=== PATIENT | male | born 1980 | race Two or more races ===

== ENCOUNTER 2017-03-28 06:41 | Emergency (ER) | payer MEDICAID ==
[~2017-03-28] VITALS: Ht 162.6 cm; Wt 86.2 kg
[~2017-03-28 06:41] MED LIST: ARIP1SOL PO; CALC0.25 PO; CALC600T37 PO; CHOL20007 PO; CLON1TAB3 PO; FOLI1TAB6; LACO150T PO; LEVE500T22 PO; PALI1.5T PO; TOPI100T68 PO; TOPI200T37
[2017-03-28] MEDS ORDERED: SODIUM CHLORIDE 0.9% 500 ML IV ONE (06:49)
[2017-03-28 07:20] VITALS: BP 106/72
[2017-03-28 07:33] LABS: Anion Gap 6 (5-15); BUN/Creatinine Ratio 18.3; Blood Urea Nitrogen 24 mg/dL (7-18); Calcium 9.5 mg/dL (8.5-10.1); Carbon Dioxide 26 mmol/L (21-32); Chloride 113 mmol/L (98-107); GFR African American 80 mL/min; GFR Non-African American 66 mL/min; Glucose 82 mg/dL (74-106); Magnesium 2.2 mg/dL (1.6-2.6); Potassium 4.1 mmol/L (3.5-5.1); Sodium 145 mmol/L (136-145)
[2017-03-28 07:35] LABS: Acetaminophen < 2.0 ug/mL (10-30); Salicylate < 1.7 mg/dL (2.8-20.0)
[2017-03-28 07:36] LABS: Alkaline Phosphatase 130 U/L (45-117); Aspartate Aminotransferase 12 U/L (15-37); Bilirubin, Total 0.4 mg/dL (0.2-1.0); Total Protein 7.2 g/dL (6.4-8.2)
[2017-03-28 07:52] LABS: Basophils # (auto) 0 uL; Basophils % (auto) 0.5 % (0.0-2.0); Eosinophils # (auto) 0.3 uL; Eosinophils % (auto) 5.7 % (0.0-7.0); Hematocrit 36.1 % (41.0-53.0); Hemoglobin 12.5 g/dL (13.5-17.5); Lymphocytes # (auto) 1.3 uL; Lymphocytes % (auto) 21.7 % (10.0-50.0); Mean Corpuscular Hemoglobin 31.5 pg (28.0-32.0); Mean Corpuscular Hgb Conc. 34.5 g/dL (32.0-36.0); Mean Corpuscular Volume 91.4 fL (80.0-100.0); Mean Platelet Volume 6.9 fL (7.4-10.4); Monocytes # (auto) 0.5 uL; Monocytes % (auto) 7.6 % (0.0-12.0); Neutrophils # (auto) 3.9 uL; Neutrophils % (auto) 64.5 % (37.0-80.0); Nucleated Red Blood Cells % 0.1 %; Platelet Count (auto) 264 10^3/uL (140-450); Red Cell Distribution Width 13.6 % (11.6-16.0)
== END 2017-03-28 14:26 | disposition home or self-care (01) ==
LOC: EDBD 06:41 → ER 06:41
DX: F41.9 Anxiety disorder, unspecified (principal); F20.9 Schizophrenia, unspecified; R51 Headache; G40.909 Epilepsy, unspecified, not intractable, without status epilepticus; Z86.73 Personal history of transient ischemic attack (TIA), and cerebral infarction without residual deficits
CPT/HCPCS: 36415; 70450; 80053; 80320; 80329; 83735; 85025; 94761; 96360; 99285; J7030

== ENCOUNTER 2017-10-27 19:17 | Emergency (ER) | payer MEDICAID ==
[~2017-10-27] VITALS: Ht 165.1 cm; Wt 90.7 kg
[2017-10-27 20:16] LABS: Basophils # (auto) 0 uL; Basophils % (auto) 0.4 % (0.0-2.0); Eosinophils # (auto) 0.2 uL; Eosinophils % (auto) 3.2 % (0.0-7.0); Hematocrit 30.9 % (41.0-53.0); Hemoglobin 10.7 g/dL (13.5-17.5); Lymphocytes # (auto) 1.2 uL; Lymphocytes % (auto) 19.7 % (10.0-50.0); Mean Corpuscular Hemoglobin 30.8 pg (28.0-32.0); Mean Corpuscular Hgb Conc. 34.6 g/dL (32.0-36.0); Mean Corpuscular Volume 89.1 fL (80.0-100.0); Monocytes # (auto) 0.8 uL; Monocytes % (auto) 13.3 % (0.0-12.0); Neutrophils # (auto) 3.9 uL; Neutrophils % (auto) 63.4 % (37.0-80.0); Platelet Count (auto) 269 10^3/uL (140-450); Red Blood Cells 3.47 10^6/uL (4.5-5.90); Red Cell Distribution Width 13.5 % (11.8-14.3); White Blood Cell 6.1 10^3/uL (4.4-10.8)
[2017-10-27 20:25] LABS: Albumin 3.8 g/dL (3.4-5.0); BUN/Creatinine Ratio 11.8; Calcium 8.2 mg/dL (8.5-10.1); Potassium 3.7 mmol/L (3.5-5.1)
[2017-10-27 20:28] LABS: Bilirubin, Total 0.3 mg/dL (0.2-1.0); Total Protein 6.9 g/dL (6.4-8.2)
[2017-10-27 23:31] LABS: Urine Bacteria NONE SEEN /hpf (None Seen); Urine Blood Negative /uL (Negative); Urine Specific Gravity 1.008 (1.001-1.035); Urine WBC 1 /hpf (0 - 3)
[2017-10-28 00:10] VITALS: BP 128/74
[2017-11-01] MEDS ORDERED: NAP500T PO (08:14)
[2017-11-01] MEDS ORDERED: ESLI1TAB4 PO (08:14)
[2017-11-01] MEDS ORDERED: ASPI325T25 PO (08:14)
[2017-11-01] MEDS ORDERED: FOLI1TAB6 PO (08:14)
[2017-11-01] MEDS ORDERED: LACO100T PO (08:14)
[2017-11-01] MEDS ORDERED: TOPI100T68 PO (08:14)
[2017-11-01] MEDS ORDERED: CALC0.25 PO (08:14)
[2017-11-01] MEDS ORDERED: CLON1TAB3 PO (08:14)
[2017-11-01] MEDS ORDERED: KEP500T PO (08:14)
[2017-11-01] MEDS ORDERED: FAMO-12 PO (08:14)
[2017-11-01] MEDS ORDERED: LORA-154 PO (08:14)
[2017-11-01] MEDS ORDERED: ARIP1TAB7 PO ×2 (08:14)
== END 2017-10-28 00:16 | disposition home or self-care (01) ==
LOC: ER 19:17 → EDBD 19:17 → ER 10-28 00:16
DX: R33.9 Retention of urine, unspecified (principal); Z86.73 Personal history of transient ischemic attack (TIA), and cerebral infarction without residual deficits
CPT/HCPCS: 36415; 51702; 80053; 81001; 85025

== ENCOUNTER 2017-11-09 23:37 | Emergency (ER) | payer MEDICAID ==
[~2017-11-09] VITALS: Ht 167.6 cm; Wt 97.5 kg
[~2017-11-09 23:37] MED LIST changes: +ARIP1TAB7 PO; +ASPI325T25 PO; +ESLI1TAB4 PO; +FAMO-12 PO; +FOLI1TAB6 PO; +KEP500T PO; +LACO100T PO; +LORA-154 PO; +NAP500T PO
[2017-11-10 08:02] LABS: Basophils # (auto) 0 uL; Basophils % (auto) 0.6 % (0.0-2.0); Eosinophils # (auto) 0.3 uL; Eosinophils % (auto) 5.4 % (0.0-7.0); Hematocrit 29.9 % (41.0-53.0); Hemoglobin 10.3 g/dL (13.5-17.5); Lymphocytes # (auto) 1.2 uL; Lymphocytes % (auto) 19.8 % (10.0-50.0); Mean Corpuscular Hemoglobin 30.2 pg (28.0-32.0); Mean Corpuscular Hgb Conc. 34.5 g/dL (32.0-36.0); Mean Corpuscular Volume 87.5 fL (80.0-100.0); Monocytes # (auto) 0.6 uL; Monocytes % (auto) 10.3 % (0.0-12.0); Neutrophils # (auto) 3.9 uL; Neutrophils % (auto) 63.9 % (37.0-80.0); Platelet Count (auto) 256 10^3/uL (140-450); Red Blood Cells 3.42 10^6/uL (4.5-5.90); Red Cell Distribution Width 13.4 % (11.8-14.3); White Blood Cell 6.1 10^3/uL (4.4-10.8)
[2017-11-10 08:20] LABS: Albumin 3.6 g/dL (3.4-5.0); BUN/Creatinine Ratio 17.1; Potassium 3.6 mmol/L (3.5-5.1)
[2017-11-10 08:22] LABS: Bilirubin, Total 0.4 mg/dL (0.2-1.0); Total Protein 6.6 g/dL (6.4-8.2)
[2017-11-10 09:01] VITALS: BP 109/72
[2017-11-10 09:26] LABS: Urine Bacteria FEW /hpf (None Seen); Urine Blood Negative /uL (Negative); Urine Mucus FEW (None Seen); Urine Specific Gravity 1.017 (1.001-1.035); Urine WBC 1 /hpf (0 - 3)
[2017-11-10] MEDS ORDERED: HYDROcodone-ACET 5/325MG TAB PO ONE (10:30)
== END 2017-11-10 10:42 | disposition home or self-care (01) ==
LOC: ER 23:37 → EDBD 23:37 → ER 11-10 10:39
DX: N20.0 Calculus of kidney (principal); I10 Essential (primary) hypertension; Z86.73 Personal history of transient ischemic attack (TIA), and cerebral infarction without residual deficits; Z79.82 Long term (current) use of aspirin
CPT/HCPCS: 36415; 51702; 74176; 80053; 81001; 85025

== ENCOUNTER 2017-11-10 19:37 | Emergency (ER) | payer MEDICAID ==
[~2017-11-10] VITALS: Ht 162.6 cm; Wt 80.3 kg
[2017-11-11 00:25] LABS: Urine Bacteria NONE SEEN /hpf (None Seen); Urine Blood 2+ /uL (Negative); Urine Specific Gravity 1.004 (1.001-1.035); Urine Sperm PRESENT /hpf (None Seen); Urine WBC 8 /hpf (0 - 3)
[2017-11-11 01:57] VITALS: BP 102/63
== END 2017-11-11 01:55 | disposition home or self-care (01) ==
LOC: EDBD 19:37 → ER 19:37
DX: N39.0 Urinary tract infection, site not specified (principal); I10 Essential (primary) hypertension; Z86.73 Personal history of transient ischemic attack (TIA), and cerebral infarction without residual deficits; Z79.82 Long term (current) use of aspirin; Z46.82 Encounter for fitting and adjustment of non-vascular catheter
CPT/HCPCS: 51702; 81001

== ENCOUNTER 2017-11-14 09:35 | Emergency (ER) | payer MEDICAID ==
[~2017-11-14] VITALS: Ht 172.7 cm; Wt 92.1 kg
[2017-11-14 09:44] VITALS: BP 122/73
== END 2017-11-14 14:28 | disposition home or self-care (01) ==
LOC: ER 09:35 → EDBD 09:35 → ER 12:59
DX: R33.9 Retention of urine, unspecified (principal); I10 Essential (primary) hypertension; Z86.73 Personal history of transient ischemic attack (TIA), and cerebral infarction without residual deficits; Z46.6 Encounter for fitting and adjustment of urinary device
CPT/HCPCS: 51702

== ENCOUNTER 2018-03-04 07:28 | Emergency (ER) | payer MEDICAID ==
[~2018-03-04] VITALS: Ht 185.4 cm; Wt 90.7 kg
[~2018-03-04 07:28] MED LIST changes: -CLON1TAB3 PO; +CLON1TAB4 PO
[2018-03-04] MEDS ORDERED: SODIUM CHLORIDE 0.9% 1,000 ML IV ONE (08:08)
[2018-03-04] MEDS ORDERED: LORazepam 2MG/ML-1ML VIAL IV ONE (08:15)
[2018-03-04 09:42] VITALS: BP 122/73
[2018-03-04 10:19] LABS: Urine Bacteria FEW /hpf (None Seen); Urine Blood Negative /uL (Negative); Urine Specific Gravity 1.004 (1.001-1.035); Urine WBC <1 /hpf (0 - 3)
[2018-03-04 10:26] LABS: Alcohol, Urine < 3.0 mg/dL (0-5); Amphetamine Screen, Urine NEGATIVE (NEGATIVE); Barbiturate Scree,Urine NEGATIVE (NEGATIVE); Benzodiazephine Screen, Urine NEGATIVE (NEGATIVE); Cannabinoid Screen, Urine NEGATIVE (NEGATIVE); Cocaine Screen, Urine NEGATIVE (NEGATIVE); Opiate Scree,Urine NEGATIVE (NEGATIVE); Phencyclidine Screen, Urine NEGATIVE (NEGATIVE)
[2018-03-04 10:56] LABS: Basophils # (auto) 0 uL; Basophils % (auto) 0.5 % (0.0-2.0); Eosinophils # (auto) 0.1 uL; Eosinophils % (auto) 2.1 % (0.0-7.0); Hematocrit 33.3 % (41.0-53.0); Hemoglobin 11.6 g/dL (13.5-17.5); Lymphocytes # (auto) 0.7 uL; Lymphocytes % (auto) 16.2 % (10.0-50.0); Mean Corpuscular Hemoglobin 29.6 pg (28.0-32.0); Mean Corpuscular Hgb Conc. 34.7 g/dL (32.0-36.0); Mean Corpuscular Volume 85.2 fL (80.0-100.0); Monocytes # (auto) 0.5 uL; Monocytes % (auto) 10.6 % (0.0-12.0); Neutrophils # (auto) 3.1 uL; Neutrophils % (auto) 70.6 % (37.0-80.0); Nucleated Red Blood Cells % 0.1 %; Platelet Count (auto) 218 10^3/uL (140-450); Red Blood Cells 3.91 10^6/uL (4.5-5.90); Red Cell Distribution Width 13.6 % (11.8-14.3); White Blood Cell 4.5 10^3/uL (4.4-10.8)
[2018-03-04 11:28] LABS: Potassium 3.7 mmol/L (3.5-5.1)
[2018-03-04 11:29] LABS: BUN/Creatinine Ratio 8.9; Calcium 8.1 mg/dL (8.5-10.1)
[2018-03-04 11:30] LABS: Albumin 3.7 g/dL (3.4-5.0); Bilirubin, Total 0.4 mg/dL (0.2-1.0); Magnesium 2.3 mg/dL (1.6-2.6); Total Protein 7.1 g/dL (6.4-8.2)
== END 2018-03-04 12:21 | disposition home or self-care (01) ==
LOC: ER 07:28 → EDBD 07:28 → ER 12:20
DX: G40.909 Epilepsy, unspecified, not intractable, without status epilepticus (principal); F31.9 Bipolar disorder, unspecified; F20.9 Schizophrenia, unspecified; I10 Essential (primary) hypertension; K21.9 Gastro-esophageal reflux disease without esophagitis; Z86.73 Personal history of transient ischemic attack (TIA), and cerebral infarction without residual deficits
CPT/HCPCS: 36415; 70450; 71046; 80053; 80307; 81001; 83735; 85025; 93005; 96361; 96374; 99285; J2060; J7030

== ENCOUNTER 2018-03-21 15:55 | Emergency (ER) | payer MEDICAID ==
[~2018-03-21] VITALS: Ht 177.8 cm; Wt 83.9 kg
[2018-03-21 16:54] LABS: Basophils # (auto) 0 uL; Eosinophils # (auto) 0.2 uL; Eosinophils % (auto) 3.3 % (0.0-7.0); Hematocrit 34.2 % (41.0-53.0); Hemoglobin 11.9 g/dL (13.5-17.5); Lymphocytes # (auto) 0.9 uL; Lymphocytes % (auto) 17.4 % (10.0-50.0); Mean Corpuscular Hemoglobin 29.8 pg (28.0-32.0); Mean Corpuscular Hgb Conc. 34.8 g/dL (32.0-36.0); Mean Corpuscular Volume 85.6 fL (80.0-100.0); Monocytes # (auto) 0.4 uL; Neutrophils # (auto) 3.4 uL; Neutrophils % (auto) 69.3 % (37.0-80.0); Platelet Count (auto) 269 10^3/uL (140-450); Red Cell Distribution Width 13.5 % (11.8-14.3); White Blood Cell 4.9 10^3/uL (4.4-10.8)
[2018-03-21 17:10] LABS: Albumin 4.1 g/dL (3.4-5.0); BUN/Creatinine Ratio 9.2; Calcium 8.8 mg/dL (8.5-10.1); Potassium 3.5 mmol/L (3.5-5.1)
[2018-03-21 17:13] LABS: Bilirubin, Total 0.5 mg/dL (0.2-1.0); Total Protein 7.7 g/dL (6.4-8.2)
[2018-03-21] MEDS ORDERED: HYDROcodone-ACET 5/325MG TAB PO ONE (21:30)
[2018-03-21] MEDS ORDERED: LORazepam 2MG/ML-1ML VIAL IV ONE (21:30)
[2018-03-21 22:08] LABS: Urine Bacteria NONE SEEN /hpf (None Seen); Urine Blood Negative /uL (Negative); Urine Specific Gravity 1.007 (1.001-1.035); Urine WBC 1 /hpf (0 - 3)
[2018-03-21 22:10] LABS: Alcohol, Urine < 3.0 mg/dL (0-5); Amphetamine Screen, Urine NEGATIVE (NEGATIVE); Barbiturate Scree,Urine NEGATIVE (NEGATIVE); Benzodiazephine Screen, Urine NEGATIVE (NEGATIVE); Cannabinoid Screen, Urine NEGATIVE (NEGATIVE); Cocaine Screen, Urine NEGATIVE (NEGATIVE); Opiate Scree,Urine NEGATIVE (NEGATIVE); Phencyclidine Screen, Urine NEGATIVE (NEGATIVE)
[2018-03-22 03:15] VITALS: BP 110/60
== END 2018-03-22 03:32 | disposition home or self-care (01) ==
LOC: EDBD 15:55 → ER 15:57
DX: G40.909 Epilepsy, unspecified, not intractable, without status epilepticus (principal); L30.9 Dermatitis, unspecified; F41.9 Anxiety disorder, unspecified; F20.9 Schizophrenia, unspecified
CPT/HCPCS: 36415; 80053; 80185; 80307; 81001; 82542; 85025; 96374; 99284; J2060

== ENCOUNTER 2023-03-13 12:10 | Emergency (ER) | payer MEDICAID ==
[~2023-03-13] VITALS: Ht 172.7 cm; Wt 93.0 kg
[~2023-03-13 12:10] MED LIST changes: +CLON-853 PO; -CLON1TAB4 PO; +FOLI-119; +FOLI-119 PO; -FOLI1TAB6; -FOLI1TAB6 PO; -LEVE500T22 PO; +LEVE500T40 PO; -LORA-154 PO; +LORA-483 PO
[2023-03-13] MEDS ORDERED: SODIUM CHLORIDE 0.9% 1,000 ML IV ONE (12:30)
[2023-03-13 13:36] LABS: Basophils # (auto) 0 10 ^3/uL (0-0.2); Basophils % (auto) 0.3 % (0.0-2.0); Eosinophils # (auto) 0.2 10 ^3/uL (0-0.8); Hemoglobin 13.1 g/dL (13.5-17.5); Lymphocytes # (auto) 1.6 10 ^3/uL (0.4-5.4); Lymphocytes % (auto) 32.1 % (10.0-50.0); Mean Corpuscular Hemoglobin 31.8 pg (28.0-32.0); Mean Corpuscular Hgb Conc. 34.5 g/dL (32.0-36.0); Mean Corpuscular Volume 92.1 fL (80.0-100.0); Monocytes # (auto) 0.6 10 ^3/uL (0-1.3); Monocytes % (auto) 11.4 % (0.0-12.0); Neutrophils # (auto) 2.7 10 ^3/uL (1.6-8.6); Neutrophils % (auto) 52.2 % (37.0-80.0); Red Blood Cells 4.12 10^6/uL (4.5-5.90); Red Cell Distribution Width 13.8 % (11.8-14.3); White Blood Cell 5.1 10^3/uL (4.4-10.8)
[2023-03-13 13:46] LABS: Alanine Aminotransferase 12 U/L (7-40); Alkaline Phosphatase 77 U/L (46-116); Anion Gap 5.6 (5-15); Aspartate Aminotransferase 14 U/L (13-40); Bilirubin, Total 0.4 mg/dL (0.2-1.0); Blood Urea Nitrogen 16 mg/dL (9-23); Calcium 9.3 mg/dL (8.5-10.1); Carbon Dioxide 26.4 mmol/L (20-30); Chloride 109 mmol/L (98-107); Glucose 96 mg/dL (74-106); Potassium 3.7 mmol/L (3.5-5.1); Sodium 141 mmol/L (136-145); Total Protein 7.1 g/dL (5.7-8.2)
[2023-03-13 19:35] VITALS: BP 124/71; PULSE 72; RESP 17; TEMP 98.5; O2SAT 96
== END 2023-03-13 19:40 | disposition home or self-care (01) ==
LOC: EDBD 12:10 → ER 12:10
DX: R56.9 Unspecified convulsions (principal); K21.9 Gastro-esophageal reflux disease without esophagitis; I10 Essential (primary) hypertension; Z87.442 Personal history of urinary calculi; Z86.73 Personal history of transient ischemic attack (TIA), and cerebral infarction without residual deficits
CPT/HCPCS: 36415; 70450; 80053; 85025; 93005; 96361; 96365; 99285; J1953; J7030; J7060

== ENCOUNTER 2023-12-08 11:24 | Emergency (ER) | payer MEDICAID ==
[~2023-12-08] VITALS: Ht 177.8 cm; Wt 95.5 kg
[~2023-12-08 11:24] MED LIST changes: +ACET-1881 PO; -ARIP1TAB7 PO; +ARIP20TA4 PO; +BENZ1TAB6 PO; +DIVA500T13 PO; +DOCU-94 PO; +DONE1TAB88 PO; +FERR160T5 PO; +FURO20TA3 PO; +IBUP-1454 PO; +KETO2CRE4 TOP; +LEVE100012 PO; +LEVOTAB51 PO; +LORA-1123 PO; +MIDA5SPR; +MULT-312 OR; +OLAN1TAB19 PO; +POLY8.5P PO; +PROM1SOL4 PO; +PSEU-295 PO; +SODI650T PO; +TRAZ-228 PO; +[UNRECOGNIZED DRUG - CODE] EX
[2023-12-08] MEDS: levETIRAcetam 1000 mg/100ml 100 ML IV ONE (12:07)
[2023-12-08 12:22] VITALS: BP 106/68; PULSE 66; RESP 14; O2SAT 93
== END 2023-12-08 13:40 | disposition home or self-care (01) ==
LOC: ER 11:24 → EDBD 11:24 → ER 13:40
DX: G40.909 Epilepsy, unspecified, not intractable, without status epilepticus (principal); I12.9 Hypertensive chronic kidney disease with stage 1 through stage 4 chronic kidney disease, or unspecified chronic kidney disease; N18.9 Chronic kidney disease, unspecified; E78.5 Hyperlipidemia, unspecified; K21.9 Gastro-esophageal reflux disease without esophagitis; F20.9 Schizophrenia, unspecified; Z86.73 Personal history of transient ischemic attack (TIA), and cerebral infarction without residual deficits; Z98.890 Other specified postprocedural states
CPT/HCPCS: 96365; 99284; J1953; 96374

== ENCOUNTER 2025-01-10 11:31 | Inpatient (IN) | payer MEDICAID ==
[~2025-01-10] VITALS: Ht 172.7 cm; Wt 100.4 kg
[~2025-01-10 11:31] MED LIST changes: -ASPI325T25 PO; -FERR160T5 PO; +[UNRECOGNIZED DRUG - CODE] EX; -[UNRECOGNIZED DRUG - CODE] EX
--- NOTE | 2025-01-10 11:39 | ED.PDOC ---
History of Present Illness HPI Comments 44-year-old male with PMHx Schizophrenia, Seizures brought in by EMS presents with a chief complaint of seizure-activity x today. Patient had 2 focal seizures lasting about 5 minutes each. Patient was postictal per EMS, but is now more alert and oriented. Patient states that he has been compliant with his me diations. Patient is bradycardic upon ER arrival with a BPM 55. Time Seen by MD: 11:28 Primary Care Provider: UNKNOWN Reviewed Notes: Medications, Allergies Allergies: Coded Allergies: NO KNOWN ALLERGIES (Verified , 03/13/23) Home Meds Reported Medications Pseudoephedrine Hcl (Sudogest) 30 Mg Tab, 30 MG PO, TAB 10/27/23 Promethazine-Dm (Promethazine Dm 6.25-15 mg/5Ml) 1 Rosalia Rosalia, 1 ROSALIA PO, ML 10/27/23 Midazolam (Anticonvulsant) (Nayzilam) 5 Mg/0.1 Ml Spr, 5 MG NA, SPRAY 10/27/23 Lorazepam (Lorazepam) 1 Mg Tab, 1 TAB PO TID, #90 TAB 10/27/23 Ibuprofen (Ibuprofen) 600 Mg Tab, 600 MG PO, MG 0 Refills 10/27/23 Furosemide (Furosemide) 20 Mg Tab, 20 MG PO DAILY for 30 Days, MG 10/27/23 Docusate Sodium (Colace) 100 Mg Cap, 250 MG PO, CAP 10/27/23 Acetaminophen (Acetaminophen) 325 Mg Tab, 650 MG PO Q4HP PRN for MILD PAIN for 30 Days, MG 0 Refills 10/27/23 Trazodone Hcl (Trazodone Hcl) 100 Mg Tab, 100 MG PO, MG 10/27/23 Multiple Vitamins W/ Minerals (Thera Vital M) M Tab, 1 OR, TAB 10/27/23 Sodium Bicarbonate (Sodium Bicarbonate) 650 Mg Tab, 650 MG PO, TAB 10/27/23 Polyethylene Glycol 3350 (Polyethylene Glycol 3350) 8.5 Gm Pow, 17 GM PO, POW 10/27/23 Olanzapine (OLANZAPINE) 10 Mg Tab, 10 MG PO, TAB 10/27/23 Levocetirizine Hydrochloride (Levocetirizine Dihydrochl) 5 Mg Tab, 5 MG PO, TAB 10/27/23 Levetiracetam (Keppra) 1,000 Mg Tab, 1 TAB PO BID, #60 TAB 5 Refills 10/27/23 Ketoconazole (Ketoconazole) 2 % Cre, TOP DAILY, #15 GRAMS 10/27/23 Donepezil Hydrochloride (DONEPEZIL HCL) 10 Mg Tab, 10 MG PO DAILY for 30 Days, MG 10/27/23 Divalproex Sodium (Divalproex Sodium) 500 Mg Tab, 1000 MG PO BID for 30 Days, MG 10/27/23 Menthol-Zinc Oxide (Calprotect 0.44-20.6 %) 1 Oin Oin, 1 OIN EX, OIN 10/27/23 Benztropine Mesylate (Benztropine Mesylate) 1 Mg Tab, 1 MG PO DAILY, MG 10/27/23 Lacosamide (Vimpat) 100 Mg Tab, 100 MG PO BID, TAB 11/01/17 Topiramate (Topiramate) 100 Mg Tab, 300 MG PO BID for 30 Days, MG 11/01/17 Naproxen (NAPROSYN TABLET) 500 Mg Tb, 1 TAB PO BID, #60 TAB 1 Refill 11/01/17 Loratadine (CLARITIN TABLET) 10 Mg Tb, 10 MG PO DAILY 11/01/17 Levetiracetam (KEPPRA TABLET) 500 Mg Tb, 750 MG PO BID 11/01/17 Folic Acid (Folic Acid) 1 Mg Tab, 1 MG PO DAILY for 30 Days, MG 11/01/17 Famotidine (Famotidine) 20 Mg Tab, 20 MG PO BID for 30 Days, MG 11/01/17 Clonazepam (Clonazepam) 1 Mg Tab, 1 TAB PO TID, #90 TAB 2 Refills 11/01/17 Calcitriol (Calcitriol) 0.25 Mcg Cap, 1 CAP PO BID, #30 CAP 5 Refills 11/01/17 Eslicarbazepine Acetate (Aptiom) 800 Mg Tab, 800 MG PO Q12HR, TAB 11/01/17 Aripiprazole (Abilify) 20 Mg Tab, 10 MG PO BID, TAB 11/01/17 Aripiprazole (Abilify) 20 Mg Tab, 10 MG PO, TAB 11/01/17 Levetiracetam (Keppra) 500 Mg Tab, 500 MG PO BID, TAB 04/26/15 Calcium W/ Vitamin D (Calcium) 600 Mg Tab, 600 MG PO TID, TAB 04/26/15 Cholecalciferol (VITAMIN D3) 2,000 Unit Tab, 2000 UNIT PO DAILY, TAB 04/26/15 Topiramate (Topiramate) 100 Mg Tab, 100 MG PO BID, TAB 04/26/15 Calcitriol (Calcitriol) 0.25 Mcg Cap, 0.25 MCG PO BID, CAP 04/26/15 Clonazepam (Clonazepam) 1 Mg Tab, 1 MG PO TID, TAB 04/26/15 Aripiprazole (Abilify) 1 Mg/Ml Rosalia, 1 MG PO HS 12/27/13 Paliperidone (Invega) 1.5 Mg Tab, PO, TAB 12/26/13 Lacosamide (Vimpat) 150 Mg Tab, PO BID 03/10/10 Folic Acid (Folic Acid) 1 Mg Tab, DAILY 01/04/10 Topiramate (Topamax) 200 Mg Tab, BID 01/04/10 Information Source: Patient, Emergency Med Personnel Mode of Arrival: EMS Severity: Moderate Timing: Minutes Duration: Since onset Prehospital treatment: Call Center Nurse Past Medical History PAST MEDICAL HISTORY: CKF, CVA, GERD, High Lipids, HTN, Kidney Stones, Schizophrenia, Seizures, Thyroid Family History Family History: Reviewed,noncontributory to illness, No family hx of HTN Social History Smoker: Non-Smoker Alcohol: Denies ETOH Use Drugs: Denies Drug Use Lives In: Assisted Care Constitutional: denies: chills, diaphoresis, fatigue, fever, malaise, sweats, weakness, others EENTM: denies: blurred vision, double vision, ear bleeding, ear discharge, ear drainage, ear pain, ear ringing, eye pain, eye redness, hearing loss, mouth pain, mouth swelling, nasal discharge, nose bleeding, nose congestion, nose pain, photophobia, tearing, throat pain, throat swelling, voice changes, others Respiratory: denies: cough, hemoptysis, orthopnea, SOB at rest, shortness of breath, SOB with excertion, stridor, wheezing, others Cardiovascular: denies: chest pain, dizzy spells, diaphoresis, Dyspnea on exertion, edema, irregular heart beat, left arm pain, lightheadedness, palpitations, PND, syncope, others Gastrointestinal: denies: abdomen distended, abdominal pain, blood streaked bowels, constipated, diarrhea, dysphagia, difficulty swallowing, hematemesis, melena, nausea, poor appetite, poor fluid intake, rectal bleeding, rectal pain, vomiting, others Genitourinary: denies: burning, dysuria, flank pain, frequency, hematuria, incontinence, penile discharge, penile sore, pain, testicle pain, testicle swelling, urgency, others Neurological: reports: seizure; denies: dizziness, fainting, headache, left sided numbness, left sided weakness, numbness, paresthesia, pre-existing deficit, right sided numbness, right sided weakness, speech problems, tingling, tremors, weakness, others Musculoskeletal: denies: back pain, gout, joint pain, joint swelling, muscle pain, muscle stiffness, neck pain, others Integumetry: denies: bruises, change in color, change in hair/nails, dryness, laceration, lesions, lumps, rash, wounds, others Allergic/Immunocompromised: denies: Difficulty Healing, Frequent Infections, Hives, Itching, others Hematologic/Lymphatic: denies: anemia, blood clots, easy bleeding, easy bruising, swollen glands, others Endocrine: denies: excessive hunger, excessive sweating, excessive thirst, excessive urination, flushing, intolerance to cold, intolerance to heat, unexplained weight gain, unexplained weight loss, others Psychiatric: denies: anxiety, bipolar disorder, depression, hopeless, panic disorder, schizophrenia, sleepless, suicidal, others All Other Systems: Reviewed and Negative Physical Exam General Appearance: Moderate Distress, Normal HEENT: Normal ENT Inspection, Pharynx Normal, TMs Normal Neck: Full Range of Motion, Non-Tender, Normal, Normal Inspection Respiratory: Chest Non-Tender, Lungs Clear, No Accessory Muscle Use, No Respiratory Distress, Normal Breath Sounds Cardiovascular: No Edema, No JVD, No Murmur, No Gallop, Normal Peripheral Pulses, Regular Rate/Rhythm Breast Exam: Deferred Gastrointestinal: No Organomegaly, Non Tender, No Pulsatile Mass, Normal Bowel Sounds, Soft Genitalia: Deferred Pelvic: Deferred Rectal: Deferred Extremities: No calf tenderness, Normal capillary refill, Normal inspection, Normal range of motion, Non-tender, No pedal edema Musculoskeletal : Apperance: Normal Neurologic: Disoriented, No Motor Deficits, Normal Affect, Normal Mood, No Sensory Deficits Cerebellar Function: NOT DONE Reflexes: NOT DONE Skin: Dry, Normal Color, Warm Peripheral Pulses: 3+ Radial (R), 3+ Radial (L) Lymphatic: No Adenopathy Was a procedure done? Was a procedure done?: No EKG EKG : Pulse Rate (adult): 55 Cardiac Rhythm: SB Differential Dx Considerations may include: Seizure Electrolyte imbalance X-Ray, Labs, Meds, VS Patient slightly disoriented. Vitals stable. Postictal. Establish intravenous access. Was given fluids. EKG does show sinus bradycardia. Was given Keppra. Continue monitoring. Time of 1ST Reevaluation: 11:58 Reevaluation 1ST: Unchanged Patient Education/Counseling: Diagnosis, Treatment, Need For Follow Up Family Education/Counseling: No Family Present SEPSIS Sepsis Screen Physician Orders Complete Blood Count (01/10/25 11:42) Urinalysis (01/10/25 11:42) Basic Metabolic Panel (01/10/25 11:42) Sodium Chloride 0.9% (01/10/25 11:45) Sodium Chloride 0.9% (01/10/25 11:45) Levetiracetam 1000 Mg/100ml (Levetiracet (01/10/25 11:45) Departure 1 Departure Time of Disposition: 11:47 Impression: Primary Impression: Metabolic encephalopathy Additional Impressions: Seizure disorder Sinus bradycardia Disposition: ADMITTED INPATIENT Admit to: Med Surg Condition: Guarded Critical Care Note Critical Care Time?: Yes (45 min-critical care time only) Critical care comment: Monitor for seizure Stability Stability form required: No Heart Score Heart Score: Heart Score Response (Comments) Value History Slightly Suspicious 0 EKG Normal 0 Age <45 0 Risk Factors No known risk factors 0 Troponin N/A 0 Total 0 I personally scribed for CHARLA MCGHEE MD ([email or web address]) on 01/10/25 at 11:38. Electronically submitted by Jeovanny Alejandra ([email or web address]). CHARLA MCGHEE MD Jan 10, 2025 11:38
[2025-01-10] MEDS: SODIUM CHLORIDE 0.9% 1,000 ML IV ONE ×2 (12:05→13:08)
[2025-01-10 12:16] LABS: Hematocrit 32.2 % (41.0-53.0); Hemoglobin 11.4 g/dL (13.5-17.5); Mean Corpuscular Hemoglobin 32.4 pg (28.0-32.0); Mean Corpuscular Volume 91.7 fL (80.0-100.0); Nucleated Red Blood Cells % 0.0 %
[2025-01-10 12:25] LABS: Chloride 103 mmol/L (98-107); Potassium 4.0 mmol/L (3.5-5.1); Sodium 138 mmol/L (136-145)
[2025-01-10 12:26] LABS: Anion Gap 6 (5-15); Calcium 10.2 mg/dL (8.7-10.4); Carbon Dioxide 29 mmol/L (20-31)
[2025-01-10 12:31] LABS: BUN/Creatinine Ratio 8.6 (10.0-20.0); Blood Urea Nitrogen 16 mg/dL (9-23); Glucose 88 mg/dL (74-106)
[2025-01-10] MEDS: levETIRAcetam 1000 mg/100ml 100 ML IV ONE (13:08)
[2025-01-10 16:57] VITALS: PULSE 52; O2SAT 98
--- NOTE | 2025-01-10 18:58 | ECG ---
[facility] Test Date: 2025-01-10 Test Time: 11:31:32 Pat Name: KAVITA PICKENS Department: ED Room: [address] [place] [address] Gender: M Delinquent Account Clerk: AMBIKA : 1980 Requested By: CHARLA MCGHEE Order Number: [id number] Reading MD: Viraj Her Measurements Intervals [place] Rate: 52 P: 0 TX: 0 QRS: 69 QRSD: 93 T: 57 QT: 393 QTc: 366 Interpretive Statements Atrial fibrillation Abnormal R-wave progression, early transition Minimal ST elevation, inferior leads Electronically Signed On 01-11-2025 20:12:50 PDT by Viraj Her Please click the below link to view image of tracing.
[2025-01-10 21:21] VITALS: PULSE 47; RESP 18; O2SAT 98
[2025-01-10] MEDS ORDERED: MORPHINE SULFATE INJ 2 MG/ml SYRG IV PRN (23:15)
[2025-01-10] MEDS ORDERED: NITROGLYCERIN 0.4 MG SL TAB SL PRN (23:15)
--- NOTE | 2025-01-11 04:25 | DVHHPRES ---
History of Present Illness Resident Creating Document: AYDEE GARCIA RESIDENT History of Present Illness Mr. Ng, a 44-year-old male with a past medical history of schizophrenia, seizures, CKF, CVA, GERD, hyperlipidemia, hypertension, nephrolithiasis, and thyroid disorder was brought in via EMS with a chief complaint of seizure activity today. He experienced two focal seizures, each lasting approximately five minutes, and was postictal per EMS but is now alert and oriented. He reports compliance with his medications. On arrival to the ED, he was noted to be bradycardic with a heart rate of 55 bpm. Prehospital care included cardiac monitoring. He denies tobacco, alcohol, or drug use and resides in assisted care. Family history was reviewed and found to be noncontributory. Past Medical History schizophrenia, seizures, CKF, CVA, GERD, hyperlipidemia, hypertension, nephrolithiasis, and thyroid disorder Past Surgical History: None Past Surgical History Denies Family History: None (Likely noncontributory) Smoke: No ALCOHOL: none Drugs: None Lives: with Family Domestic Violence: Neg Review of Systems Constitutional: Yes: Weakness, Malaise; No: Fever, Chills, Sweats, Other Eyes: No: Pain, Vision change, Conjunctivae inflammation, Eyelid inflammation, Other, Redness ENT: No: Ear pain, Ear discharge, Nose pain, Nose discharge, Nose congestion, Mouth pain, Mouth swelling, Throat pain, Throat swelling, Other Respiratory: No: Cough, Dry, Shortness of breath, SOB with excertion, Wheezing, Hemoptysis, Pleuritic Pain, Sputum, Wheezing, Other Cardiovascular: No: Chest Pain, Palpitations, Orthopnea, Paroxysmal Noc. Dysp gomez, Edema, Lt Headedness, Other Gastrointestinal: No: Nausea, Vomiting, Abdominal Pain, Diarrhea, Constipation, Melena, Hematochezia, Other Genitourinary: No Dysuria, No Frequency, No Incontinence, No Hematuria, No Retention, No Other Musculoskeletal: No: other, neck pain, shoulder pain, arm pain, back pain, hand pain, leg pain, foot pain Skin: Rash; No: Lesions, Jaundice, Bruising, Other Neurological: Weakness, Seizures; No: Numbness, Incoordination, Change in speech, Confusion, Other Allergies: Coded Allergies: NO KNOWN ALLERGIES (Verified , 03/13/23) Medications Current Medications Medications Dose Ordered Sig/Ebonie Route Start Time Stop Time Status Last Admin Dose Admin Nitroglycerin 0.4 mg Q5MINP PRN SL 01/10/25 23:15 Morphine Sulfate 2 mg Q30M PRN IV 01/10/25 23:15 Exam Vital Signs Vital Signs Date Time Temp Pulse Resp B/P (MAP) Pulse Ox O2 Delivery O2 Flow Rate FiO2 01/11/25 03:00 46 16 102/62 (75) 96 01/10/25 21:21 Room Air* 0 21 01/10/25 20:00 97.7 97.7 General Appearance: Alert, Oriented X3, Cooperative, No acute distress, Other (Was sleeping comfortably) HEENT: Atraumatic, PERRLA, EOMI, Mucous membr. moist/pink Respiratory: Clear to auscultation, Normal air movement Cardiovascular: Regular rate, Normal S1, Normal S2, No murmurs, Other (Patient was evaluated bradycardia, did put on telemetry for further monitoring) Abdominal: Normal bowel sounds, Soft, No tenderness, No hepatospenomegaly, No masses Extremities: No clubbing, No cyanosis, No edema, Normal pulses, No tenderness/swelling Skin: No rashes, No breakdown, No significant lesion (Except mild redness around creases, poor hygiene, skin flakes) Neuro: Normal gait, Normal speech, Strength at 5/5 X4 ext, Normal tone, Sensation intact, Cranial nerves 3-12 NL, Reflexes 2+, Other (Baseline, difficult to assess, patient does not want to be bothered. will retry and look for Neurology input. No postictal phase noted with new onset of headache nausea vomiting or amnesia) Psych/Mental Status: Mental status NL, Mood NL, Other (Denies suicid al/homicidal ideation, no active symptoms of hallucination noted (very brief encounter)) Labs/Xrays Labs Test 01/10/25 12:04 Range/Units White Blood Count 4.4 4.4-10.8 10^3/uL Red Blood Count 3.52 L 4.5-5.90 10^6/uL Hemoglobin 11.4 L 13.5-17.5 g/dL Hematocrit 32.2 L 41.0-53.0 % Mean Corpuscular Volume 91.7 80.0-100.0 fL Mean Corpuscular Hemoglobin 32.4 H 28.0-32.0 pg Mean Corpuscular Hemoglobin Concent 35.4 32.0-36.0 g/dL Red Cell Distribution Width 12.6 11.8-14.3 % Platelet Count 170 140-450 10^3/uL Mean Platelet Volume 6.9 6.9-10.8 fL Neutrophils (%) (Auto) 49.5 37.0-80.0 % Lymphocytes (%) (Auto) 34.4 10.0-50.0 % Monocytes (%) (Auto) 12.1 H 0.0-12.0 % Eosinophils (%) (Auto) 3.4 0.0-7.0 % Basophils (%) (Auto) 0.6 0.0-2.0 % Neutrophils # (Auto) 2.2 1.6-8.6 10 ^3/uL Lymphocytes # (Auto) 1.5 0.4-5.4 10 ^3/uL Monocytes # (Auto) 0.5 0-1.3 10 ^3/uL Eosinophils # (Auto) 0.2 0-0.8 10 ^3/uL Basophils # (Auto) 0 0-0.2 10 ^3/uL Nucleated Red Blood Cells 0.0 % Sodium Level 138 136-145 mmol/L Potassium Level 4.0 3.5-5.1 mmol/L Chloride Level 103 98-107 mmol/L Carbon Dioxide Level 29 20-31 mmol/L Anion Gap 6 5-15 Blood Urea Nitrogen 16 9-23 mg/dL Creatinine 1.85 H 0.700-1.30 mg/dL Glomerular Filtration Rate Calc 46 >90 mL/min BUN/Creatinine Ratio 8.6 L 10.0-20.0 Serum Glucose 88 74-106 mg/dL Calcium Level 10.2 8.7-10.4 mg/dL Assessment/Plan Assessment/Plan # likely breakthrough seizure: We will do Keppra loading and further treatment, it could be mistaken for syncope and other disorders as history is not well established. # metabolic/toxic encephalopathy: Altered level of consciousness/confusion noted by the ED providers, at the time I evaluated was not much evident. Could be postictal phase/contributing other factors workup in progress/head CT pending # known seizure disorder: On Keppra 500 p.o. b.i.d., lacosamide 150 mg p.o. b.i.d. topiramate 200 mg b.i.d. start Keppra IV loading dose. Given complicated psychiatric and neuro surgical history consulted Neurology. Seizure and fall precautions to continue. # left parietal lobe edema from an underlying lesion, or encephalomalacia: unchanged in interval NCCT head. # history of stroke/TIA: CT scan to check, patient is back to baseline, no additional focal neurological deficits found. # recurrent bradycardia: Avoid beta sanya/CCP/pieter sanya, keep on telemetry, ruled out secondary causes TSH heart block, EKG, keep on telemetry, lupus sinus pauses, conduction abnormality, if patient is symptomatic might need pacing. For now IV atropine, if needed glucagon, temporary pacing support can be done with IV dopamine infusion, cutaneous/temporary pacing if needed. # known hypertension: hospitalist admission is normotensive mostly, regular medicine is Minipress 1 mg. Given multiple psychiatric medications look for HbA1c, lipid panel for metabolic syndrome, keep the blood pressure 140/90 or below. # grade 1 obesity: BMI of 32.0, vitals counseling # RUBI likely due to VMN: Presenting creatinine of 1.85, IV fluid, trend renal functions. # underlying CKD: Baseline not yet determined, trend renal functions # isolated monocytosis: Blood differentials but for now trend the CBC. # chronic normocytic anemia: Hemoglobin of 11.4, baseline around 11 to 12, denies any active bleeding, FOBT to rule out any occult bleeding. # history of tinea infection: On terbinafine 250 tabs daily. # known schizophrenia: On multiple medications over the year difficult to control symptoms # multiple psychiatric issues: anxiety depression psychosis: Patient on donepezil 10 mg daily, divalproex 500 mg daily, topiramate 100 mg daily, denies behavioral aggression, suicidal or homicidal ideation. If found consult psychiatric team. # seasonal allergy levocetirizine, 5 mg daily # intertrigo/fungal infection: Ketoconazole 2% cream continue # insomnia: Likely related to the anxiety, trazodone 100 mg daily at bedtime # known POD/ GERD/GI prophylaxis: IV PPI to continue # history of Kidney Stones: to UA check, no renal colic, abdomen examination unremarkable # difficult medical reconciliation, poor historian: Careful medication reconsideration needed. # re-start antipsychotic Meds today when deemed appropriate after Neurology evaluation to rule out possible cause of breakthrough. PCP: Monalisa Specialist Relevant To Admission: Neurology consulted, Cardiology consulted. Psychiatry at this point not needed but has a history of, complex psychiatric history. Case discussed with Dr. Andres. Code Status: Full Code. Plan of care and goals of care discussion needed total 39 minutes bedside. Patient is admitted in hospital for further workup and management in telemetry floor. Plan discussed with: Patient My Orders Orders - AYDEE GARCIA Procedure Category Date Status Time Admit ADMIT 01/10/25 Transmitted 23:[address] [facility] 01/10/25 In Process Sublingual (Ntrostat 23:15 Morphine Sulfate [facility] 01/10/25 In Process Injection 23:15 Oxygen By Nasal RT 01/10/25 Transmitted Cannula 23:07 Stat Ekg For Chest [facility] 01/10/25 In Process Pain 23:07 Notify Md Of Changes [facility] 01/10/25 In Process From Base 23:07 [employer] For [facility] 01/10/25 In Process 24 Hours 23:07 Emergency Dysrhythmia [facility] 01/10/25 In Process Protocol 23:07 Rhythm Strips Once [facility] 01/10/25 In Process Every Shift 23:07 Seizure Precautions [facility] 01/10/[address] 23:07 Seizure Precautions ED NURSING 01/10/25 Transmitted Date of Service: Jan 10, 2025 Billing Provider: MARISABEL ANDRES MD Common Visit Codes: 75465-[id number] INP/OBS CARE (HIGH) Secondary Visit Codes: 20962-[id number] CARE PLAN 30 MINUTES AYDEE GARCIA Jan 11, 2025 04:25
--- NOTE | 2025-01-11 09:02 | DVH ---
EXAM: CT HEAD WITHOUT CONTRAST INDICATION: R/o intracranial isuues/ stroke TECHNIQUE: CT of the head without intravenous contrast. Radiation Dose Information: CT Dose: CTDI volume is 53.59 mGy. Dose-length product is 863.9 mGy*cm The dose indicators for CT are the volume Computed Tomography (CT) Dose Index (CTDIvol) and the Dose Length Product (DLP), and are measured in units of mGy and mGy-cm, respectively. These indicators are not patient dose, but values generated from the CT scanner acquisition factors. The report includes radiation exposure data for exposures received during this examination. COMPARISON: CT HEAD CONTRAST ONLY on DOS: 10/27/23, CT HEAD WITHOUT CONTRAST on DOS: 10/26/23, CT HEAD WITHOUT CONTRAST on DOS: 03/13/23 FINDINGS: There is no evidence of acute intracranial hemorrhage, extra-axial collection, mass effect, midline s hift, herniation or hydrocephalus. Unchanged region of decreased attenuation within the left parietal lobe, which could represent edema from an underlying lesion, or encephalomalacia. This is unchanged in appearance and CT dated 03/13/2023. No discrete enhancing lesion is appreciated on CT with IV contr ast. Recommend MRI brain with and without contrast to further evaluate if clinically indicated. The ventricles, sulci and cisterns are age appropriate. The jauregui-white differentiation is intact. Patchy periventricular and subcortical white matter hypoattenuation is nonspecific but may be related to small vessel ischemic disease. The visualized paranasal sinuses and mastoid air cells are clear. The surrounding soft tissues and osseous structures are unremarkable. IMPRESSION: Unchanged region of decreased attenuation within the left parietal lobe, which could represent edema from an underlying lesion, or encephalomalacia. This is unchanged in appearance and CT dated 3. No discrete enhancing lesion is appreciated on CT with IV contrast. Recommend MRI brain with and w ithout contrast to further evaluate if clinically indicated.
[2025-01-11 09:06] LABS: Hematocrit 34.5 % (41.0-53.0); Hemoglobin 12.0 g/dL (13.5-17.5); Mean Corpuscular Hemoglobin 32.5 pg (28.0-32.0); Mean Corpuscular Volume 93.3 fL (80.0-100.0); Nucleated Red Blood Cells % 0.1 %
[2025-01-11] MEDS: ATROPINE SULF 1 MG/10ml SYR IV ONE (09:19)
[2025-01-11 09:21] LABS: Albumin 4.4 g/dL (3.2-4.8); Alkaline Phosphatase 67 U/L (46-116); Anion Gap 9 (5-15); BUN/Creatinine Ratio 9.6 (10.0-20.0); Blood Urea Nitrogen 18 mg/dL (9-23); Carbon Dioxide 25 mmol/L (20-31); Glucose 75 mg/dL (74-106); Magnesium 2.2 mg/dL (1.6-2.6); Potassium 4.3 mmol/L (3.5-5.1); Total Protein 7.4 g/dL (5.7-8.2); Triglycerides 103 mg/dL (< 150)
[2025-01-11 09:22] LABS: Bilirubin, Total 0.3 mg/dL (0.2-1.0); Cholesterol 144 mg/dL (< 200); Creatine Kinase IFCC 97 U/L (46-171); HDL Cholesterol 44 mg/dL (40-59)
[2025-01-11 09:25] LABS: Alanine Aminotransferase < 9 U/L (7-40); Calcium 10.5 mg/dL (8.7-10.4); Chloride 113 mmol/L (98-107); Sodium 147 mmol/L (136-145)
[2025-01-11 09:27] LABS: INR 1.08 (0.9-1.15); Prothrombin Time 11.4 sec (9.3-11.8)
[2025-01-11] MEDS: levETIRAcetam 500 mg/100ml 100 ML IV SCH (09:54)
[2025-01-11] MEDS: LACTATED RINGER'S 1,000 ML IV SCH (10:00)
--- NOTE | 2025-01-11 11:56 | DVH ---
Carotid Duplex Date: 01/11/2025 11:06 AM Clinical History: rule out hemodynamically significant obstruction Comparison: None Technique: Duplex doppler evaluation of the extracranial carotid and vertebral arteries including col or doppler and spectral/pulsed waveform analysis was performed. Findings: RIGHT SIDE: There is no significant atherosclerotic plaque seen. The peak systolic velocities are 76 cm/s in the distal CCA and 127 cm/s in the mid ICA.The ICA/CCA ra marcus is less than 2. The external carotid artery is patent with peak systolic velocity of 66 cm/s proximally. There is appropriate antegrade flow in the right vertebral artery. LEFT SIDE: The peak systolic velocities are 77 cm/s in the distal CCA and 98 cm/s in the distal ICA. The ICA/CC A ratio is less than 2. The external carotid artery is patent with peak systolic velocity of 68 cm/s proximally. There is appropriate antegrade flow in the left vertebral artery. IMPRESSION: 1. No hemodynamically significant stenosis noted in the right carotid system. 2. No hemodynamically significant stenosis noted in the left carotid system. 3. Reference: Radiology 2003; 229:340-346
--- NOTE | 2025-01-11 12:48 | DVHINCON2 ---
Date Seen: Jan 11, 2025 Referring Physician Timur Reason for Consultation Sinus Bradycardia History of Present Illness 44-year-old male with PMH for schizophrenia, seizure disorder, CVA, HTN, HLD, CKD presents to the hospital with seizure activity. Patient unaware LV events leading to hospitalization therefore information gathering from chart review, apparently patient had 2 focal seizures each lasting approximately 5 minutes and was postictal per EMS. Upon evaluation at bedside patient alert and oriented x3. Patient was found to be bradycardic with heart rate in the 50s at times dropping down in the mid to low 40s. Patient has a history of bradycardia with previous workup in the past with no significant findings. Troponin negative x2, creatinine 1.85, normal TSH. EKG reviewed and shows sinus bradycardia 52 beats per minute, no acute ST and T- wave abnormality. Past Medical History As stated above Past Surgical History Vagus nerve stimulator implantation left upper chest Family History: Alcohol abuse G8 MOTHER G8 FATHER Cirrhosis of liver G8 MOTHER FH: hepatitis G8 MOTHER Family history: Diabetes mellitus G8 MOTHER Family history: Hypertension Seizure disorder (situation) Social History Denies alcohol, tobacco, or illicit drug use. Allergies: Coded Allergies: NO KNOWN ALLERGIES (Verified , 03/13/23) Home Meds Reported Medications Pseudoephedrine Hcl (Sudogest) 30 Mg Tab, 30 MG PO, TAB 10/27/23 Promethazine-Dm (Promethazine Dm 6.25-15 mg/5Ml) 1 Rosalia Rosalia, 1 ROSALIA PO, ML 10/27/23 Midazolam (Anticonvulsant) (Nayzilam) 5 Mg/0.1 Ml Spr, 5 MG NA, SPRAY 10/27/23 Lorazepam (Lorazepam) 1 Mg Tab, 1 TAB PO TID, #90 TAB 10/27/23 Ibuprofen (Ibuprofen) 600 Mg Tab, 600 MG PO, MG 0 Refills 10/27/23 Furosemide (Furosemide) 20 Mg Tab, 20 MG PO DAILY for 30 Days, MG 10/27/23 Docusate Sodium (Colace) 100 Mg Cap, 250 MG PO, CAP 10/27/23 Acetaminophen (Acetaminophen) 325 Mg Tab, 650 MG PO Q4HP PRN for MILD PAIN for 30 Days, MG 0 Refills 10/27/23 Trazodone Hcl (Trazodone Hcl) 100 Mg Tab, 100 MG PO, MG 10/27/23 Multiple Vitamins W/ Minerals (Thera Vital M) M Tab, 1 OR, TAB 10/27/23 Sodium Bicarbonate (Sodium Bicarbonate) 650 Mg Tab, 650 MG PO, TAB 10/27/23 Polyethylene Glycol 3350 (Polyethylene Glycol 3350) 8.5 Gm Pow, 17 GM PO, POW 10/27/23 Olanzapine (OLANZAPINE) 10 Mg Tab, 10 MG PO, TAB 10/27/23 Levocetirizine Hydrochloride (Levocetirizine Dihydrochl) 5 Mg Tab, 5 MG PO, TAB 10/27/23 Levetiracetam (Keppra) 1,000 Mg Tab, 1 TAB PO BID, #60 TAB 5 Refills 10/27/23 Ketoconazole (Ketoconazole) 2 % Cre, TOP DAILY, #15 GRAMS 10/27/23 Donepezil Hydrochloride (DONEPEZIL HCL) 10 Mg Tab, 10 MG PO DAILY for 30 Days, MG 10/27/23 Divalproex Sodium (Divalproex Sodium) 500 Mg Tab, 1000 MG PO BID for 30 Days, MG 10/27/23 Menthol-Zinc Oxide (Calprotect 0.44-20.6 %) 1 Oin Oin, 1 OIN EX, OIN 10/27/23 Benztropine Mesylate (Benztropine Mesylate) 1 Mg Tab, 1 MG PO DAILY, MG 10/27/23 Lacosamide (Vimpat) 100 Mg Tab, 100 MG PO BID, TAB 11/01/17 Topiramate (Topiramate) 100 Mg Tab, 300 MG PO BID for 30 Days, MG 11/01/17 Naproxen (NAPROSYN TABLET) 500 Mg Tb, 1 TAB PO BID, #60 TAB 1 Refill 11/01/17 Loratadine (CLARITIN TABLET) 10 Mg Tb, 10 MG PO DAILY 11/01/17 Levetiracetam (KEPPRA TABLET) 500 Mg Tb, 750 MG PO BID 11/01/17 Folic Acid (Folic Acid) 1 Mg Tab, 1 MG PO DAILY for 30 Days, MG 11/01/17 Famotidine (Famotidine) 20 Mg Tab, 20 MG PO BID for 30 Days, MG 11/01/17 Clonazepam (Clonazepam) 1 Mg Tab, 1 TAB PO TID, #90 TAB 2 Refills 4/18/18 Calcitriol (Calcitriol) 0.25 Mcg Cap, 1 CAP PO BID, #30 CAP 5 Refills 11/01/17 Eslicarbazepine Acetate (Aptiom) 800 Mg Tab, 800 MG PO Q12HR, TAB 11/01/17 Aripiprazole (Abilify) 20 Mg Tab, 10 MG PO BID, TAB 11/01/17 Aripiprazole (Abilify) 20 Mg Tab, 10 MG PO, TAB 11/01/17 Levetiracetam (Keppra) 500 Mg Tab, 500 MG PO BID, TAB 04/26/15 Calcium W/ Vitamin D (Calcium) 600 Mg Tab, 600 MG PO TID, TAB 04/26/15 Cholecalciferol (VITAMIN D3) 2,000 Unit Tab, 2000 UNIT PO DAILY, TAB 04/26/15 Topiramate (Topiramate) 100 Mg Tab, 100 MG PO BID, TAB 04/26/15 Calcitriol (Calcitriol) 0.25 Mcg Cap, 0.25 MCG PO BID, CAP 04/26/15 Clonazepam (Clonazepam) 1 Mg Tab, 1 MG PO TID, TAB 04/26/15 Aripiprazole (Abilify) 1 Mg/Ml Rosalia, 1 MG PO HS 12/27/13 Paliperidone (Invega) 1.5 Mg Tab, PO, TAB 12/26/13 Lacosamide (Vimpat) 150 Mg Tab, PO BID 03/10/10 Folic Acid (Folic Acid) 1 Mg Tab, DAILY 01/04/10 Topiramate (Topamax) 200 Mg Tab, BID 01/04/10 Current Medications Current Medications Medications (Trade) Dose Ordered Sig/Ebonie Route PRN Reason Start Time Stop Time Status Last Admin Nitroglycerin (Ntrostat Sublingual) 0.4 mg Q5MINP PRN SL FOR CHEST PAIN 01/10/25 23:15 Morphine Sulfate 2 mg Q30M PRN IV FOR CHEST PAIN 01/10/25 23:15 Levetiracetam 100 ml @ 400 mls/hr BID IV 01/11/25 10:00 01/11/25 09:54 Lactated Ringer's 1,000 ml @ 100 mls/hr Q10H IV 01/11/25 10:00 01/11/25 10:00 Review of Systems Constitutional: No: Fever, Chills, Sweats, Weakness, Malaise, Other Eyes: No: Pain, Vision change, Conjunctivae inflammation, Eyelid inflammation, Other, Redness ENT: No: Ear pain, Ear discharge, Nose pain, Nose discharge, Nose congestion, Mouth pain, Mouth swelling, Throat pain, Throat swelling, Other Respiratory: No: Cough, Dry, Shortness of breath, SOB with exertion, Wheezing, Hemoptysis, Pleuritic Pain, Sputum, Wheezing, Other Cardiovascular: ; No: Chest Pain Palpitations, Orthopnea, Paroxysmal Noc. Dyspnea, Edema, Lt Headedness, Other Gastrointestinal: No: Nausea, Vomiting, Abdominal Pain, Diarrhea, Constipation, Melena, Hematochezia, Other Genitourinary: No Dysuria, No Frequency, No Incontinence, No Hematuria, No Retention, No Other Musculoskeletal: neck pain; No: other, shoulder pain, arm pain, back pain, hand pain, leg pain, foot pain Skin: No: Rash, Lesions, Jaundice, Bruising, Other Neurological: Other (denies Dizziness, headache.); No: Weakness, Numbness, Incoordination, Change in speech, Confusion, positive: Seizures Vital Signs Vital Signs Date Time Temp Pulse Resp B/P (MAP) Pulse Ox O2 Delivery O2 Flow Rate FiO2 01/11/25 10:59 56 16 113/72 (86) 96 01/10/25 21:21 Room Air* 0 21 01/10/25 20:00 97.7 97.7 Physical Exam General appearance: Patient is well-developed, well-nourished, in no acute distress. HEENT: Exam shows: Normocephalic, atraumatic, PERRLA, EOMI Neck: Supple, no bruits Chest: Equal chest excursion bilaterally. Breath sounds normal-no rales or wheezes. Heart: Rhythm: Regular rate; bradycardia; no murmur or gallop Abdomen: Exam shows: Soft, nontender, nondistended Musculoskeletal: No clubbing, no cyanosis, no lower extremity edema Dermatology: Skin warm, moist. Neurological: Exam shows: Alert and oriented x3, normal speech Available prior records, labs, EKG, rhythm strips reviewed and interpreted Labs/Diagnostic Data Labs Test 01/11/25 09:56 01/11/25 08:54 Range/Units Erythrocyte Sedimentation Rate 17 0-20 mm/hr Troponin I High Sensitivity 5 </=54 ng/L White Blood Count 5.0 4.4-10.8 10^3/uL Red Blood Count 3.70 L 4.5-5.90 10^6/uL Hemoglobin 12.0 L 13.5-17.5 g/dL Hematocrit 34.5 L 41.0-53.0 % Mean Corpuscular Volume 93.3 80.0-100.0 fL Mean Corpuscular Hemoglobin 32.5 H 28.0-32.0 pg Mean Corpuscular Hemoglobin Concent 34.9 32.0-36.0 g/dL Red Cell Distribution Width 13.2 11.8-14.3 % Platelet Count 181 140-450 10^3/uL Mean Platelet Volume 6.9 6.9-10.8 fL Neutrophils (%) (Auto) 51.3 37.0-80.0 % Lymphocytes (%) (Auto) 32.6 10.0-50.0 % Monocytes (%) (Auto) 12.7 H 0.0-12.0 % Eosinophils (%) (Auto) 2.9 0.0-7.0 % Basophils (%) (Auto) 0.5 0.0-2.0 % Neutrophils # (Auto) 2.6 1.6-8.6 10 ^3/uL Lymphocytes # (Auto) 1.6 0.4-5.4 10 ^3/uL Monocytes # (Auto) 0.6 0-1.3 10 ^3/uL Eosinophils # (Auto) 0.1 0-0.8 10 ^3/uL Basophils # (Auto) 0 0-0.2 10 ^3/uL Nucleated Red Blood Cells 0.1 % Prothrombin Time 11.4 9.3-11.8 sec Prothrombin Time INR 1.08 0.9-1.15 Sodium Level 147 #H 136-145 mmol/L Potassium Level 4.3 3.5-5.1 mmol/L Chloride Level 113 #H 98-107 mmol/L Carbon Dioxide Level 25 20-31 mmol/L Anion Gap 9 5-15 Blood Urea Nitrogen 18 9-23 mg/dL Creatinine 1.87 H 0.700-1.30 mg/dL Glomerular Filtration Rate Calc 45 >90 mL/min BUN/Creatinine Ratio 9.6 L 10.0-20.0 Serum Glucose 75 74-106 mg/dL Hemoglobin A1c 4.9 <5.7 % A1C Lactic Acid Level 0.8 0.4-2.0 mmol/L Calcium Level 10.5 H 8.7-10.4 mg/dL Magnesium Level 2.2 1.6-2.6 mg/dL Total Bilirubin 0.3 0.2-1.0 mg/dL Aspartate Amino Transferase (AST) 12 <34 U/L Alanine Aminotransferase (ALT) < 9 7-40 U/L Alkaline Phosphatase 67 46-116 U/L Creatine Kinase 97 46-171 U/L C-Reactive Protein High Sensitivity 1.23 H <1.0 mg/dL B-Type Natriuretic Peptide 64.93 0-100 pg/mL Total Protein 7.4 5.7-8.2 g/dL Albumin 4.4 3.2-4.8 g/dL Triglycerides Level 103 < 150 mg/dL Cholesterol Level 144 < 200 mg/dL LDL Cholesterol 84 < 100 mg/dL HDL Cholesterol 44 40-59 mg/dL Thyroid Stimulating Hormone (TSH) 3.23 0.55-4.78 uIU/mL Plasma/Serum Blood Alcohol < 3.0 <10 mg/dL Assessment * Sinus Bradycardia - continue telemetry monitoring. No episodes of AV blocks, pauses, or irregular rhythms noted on review. TSH normal. Follow up echo. Avoid AV pieter blockers. Positive chronotropic response with activity. Does not seem to be symptomatic. Unremarkable carotid ultrasound. Continue outpatient monitoring. * Breakthrough Seizure - management per primary team. Neurology on board. CT head showing region of decreased attenuation of the left parietal lobe unchan ged from previous CT. * HX HTN - BP marginal, stable off meds. Continue trending. Avoid AV pieter blockers. * RUBI n CKD - continue monitoring with IV fluid hydration. * Psych disorder Case Discussed with Dr Hackett. Given no significant findings on echo, continue telemetry monitoring for now. Continued outpatient monitoring. Critical care, time spent: 35 minutes This medical document was created using an electronic medical record system with voice recognition software and computerized dictation system. Although this document has been carefully reviewed, there might still be some phonetic and typographical errors. Occasional wrong-word or ``sound-alike substitutions may have occurred due to the inherent limitations of voice recognition software. These areas are purely typographical due to imperfections of the software programs and do not reflect any compromise in the patient's medical care. Please read the chart carefully and recognize, using context, where these substitutions have occurred. Thank you for allowing me to participate in the management of this patient. The treatment plan was discussed with and agreed upon by patient/family including requesting consultants and ordering of imaging/procedures. Plan discussed with: Patient NYHA Physical activity limitations: NA Date of Service: Jan 11, 2025 Billing Provider: JORDEN NINO Cardiology Common Codes: [id number] INP/OBS CARE (High), [id number] CARE 30-74 MIN JORDEN NINO Jan 11, 2025 12:48
[2025-01-11] MEDS ORDERED: LORazepam 2MG/ML-1ML VIAL IV PRN (13:45)
[2025-01-11 14:30] LABS: COVID19 ANTIGEN SOFIA FIA NEGATIVE (NEGATIVE)
--- NOTE | 2025-01-11 15:47 | DVHINCON2 ---
Date Seen: Jan 11, 2025 Referring Physician Timur Reason for Consultation Sinus Bradycardia History of Present Illness This is a 44-year-old male with PMH of schizophrenia, seizure disorder, CVA, HTN, HLD, CKD who presented to the ED with complaints of seizure activity. Patient unaware of events leading to hospitalization therefore information gathering from chart review, apparently patient had 2 focal seizures each last ing approximately 5 minutes and was postictal per EMS. Upon evaluation at bedside patient alert and oriented x3. Patient was found to be bradycardic with heart rate in the 50s at times dropping down in the mid to low 40s. Patient has a history of bradycardia with previous workup in the past with no significant findings. Troponin negative x 2, creatinine 1.85, normal TSH. EKG reviewed and shows sinus bradycardia 52 beats per minute, no acute ST and T-wave abnormality. CT head showed unchanged region of decreased attenuation within the left parietal lobe, which could represent edema from an underlying lesion, or encephalomalacia. This is unchanged in appearance and CT dated 03/13/2023. Cartoid Doppler shows no hemodynamically significant stenosis noted in the left or right carotid system. Patient was admitted to the hospital. Cardiology is asked to consult on this patient. Past Medical History As stated above Past Surgical History Vagus nerve stimulator implantation left upper chest Family History: Alcohol abuse G8 MOTHER G8 FATHER Cirrhosis of liver G8 MOTHER FH: hepatitis G8 MOTHER Family history: Diabetes mellitus G8 MOTHER Family history: Hypertension Seizure disorder (situation) Allergies: Coded Allergies: NO KNOWN ALLERGIES (Verified , 03/13/23) Home Meds Reported Medications Pseudoephedrine Hcl (Sudogest) 30 Mg Tab, 30 MG PO, TAB 10/27/23 Promethazine-Dm (Promethazine Dm 6.25-15 mg/5Ml) 1 Rosalia Rosalia, 1 ROSALIA PO, ML 10/27/23 Midazolam (Anticonvulsant) (Nayzilam) 5 Mg/0.1 Ml Spr, 5 MG NA, SPRAY 10/27/23 Lorazepam (Lorazepam) 1 Mg Tab, 1 TAB PO TID, #90 TAB 10/27/23 Ibuprofen (Ibuprofen) 600 Mg Tab, 600 MG PO, MG 0 Refills 10/27/23 Furosemide (Furosemide) 20 Mg Tab, 20 MG PO DAILY for 30 Days, MG 10/27/23 Docusate Sodium (Colace) 100 Mg Cap, 250 MG PO, CAP 10/27/23 Acetaminophen (Acetaminophen) 325 Mg Tab, 650 MG PO Q4HP PRN for MILD PAIN for 30 Days, MG 0 Refills 10/27/23 Trazodone Hcl (Trazodone Hcl) 100 Mg Tab, 100 MG PO, MG 10/27/23 Multiple Vitamins W/ Minerals (Thera Vital M) M Tab, 1 OR, TAB 10/27/23 Sodium Bicarbonate (Sodium Bicarbonate) 650 Mg Tab, 650 MG PO, TAB 10/27/23 Polyethylene Glycol 3350 (Polyethylene Glycol 3350) 8.5 Gm Pow, 17 GM PO, POW 10/27/23 Olanzapine (OLANZAPINE) 10 Mg Tab, 10 MG PO, TAB 10/27/23 Levocetirizine Hydrochloride (Levocetirizine Dihydrochl) 5 Mg Tab, 5 MG PO, TAB 10/27/23 Levetiracetam (Keppra) 1,000 Mg Tab, 1 TAB PO BID, #60 TAB 5 Refills 10/27/23 Ketoconazole (Ketoconazole) 2 % Cre, TOP DAILY, #15 GRAMS 10/27/23 Donepezil Hydrochloride (DONEPEZIL HCL) 10 Mg Tab, 10 MG PO DAILY for 30 Days, MG 10/27/23 Divalproex Sodium (Divalproex Sodium) 500 Mg Tab, 1000 MG PO BID for 30 Days, MG 10/27/23 Menthol-Zinc Oxide (Calprotect 0.44-20.6 %) 1 Oin Oin, 1 OIN EX, OIN 10/27/23 Benztropine Mesylate (Benztropine Mesylate) 1 Mg Tab, 1 MG PO DAILY, MG 10/27/23 Lacosamide (Vimpat) 100 Mg Tab, 100 MG PO BID, TAB 11/01/17 Topiramate (Topiramate) 100 Mg Tab, 300 MG PO BID for 30 Days, MG 11/01/17 Naproxen (NAPROSYN TABLET) 500 Mg Tb, 1 TAB PO BID, #60 TAB 1 Refill 11/01/17 Loratadine (CLARITIN TABLET) 10 Mg Tb, 10 MG PO DAILY 11/01/17 Levetiracetam (KEPPRA TABLET) 500 Mg Tb, 750 MG PO BID 11/01/17 Folic Acid (Folic Acid) 1 Mg Tab, 1 MG PO DAILY for 30 Days, MG 11/01/17 Famotidine (Famotidine) 20 Mg Tab, 20 MG PO BID for 30 Days, MG 11/01/17 Clonazepam (Clonazepam) 1 Mg Tab, 1 TAB PO TID, #90 TAB 2 Refills 11/01/17 Calcitriol (Calcitriol) 0.25 Mcg Cap, 1 CAP PO BID, #30 CAP 5 Refills 11/01/17 Eslicarbazepine Acetate (Aptiom) 800 Mg Tab, 800 MG PO Q12HR, TAB 11/01/17 Aripiprazole (Abilify) 20 Mg Tab, 10 MG PO BID, TAB 11/01/17 Aripiprazole (Abilify) 20 Mg Tab, 10 MG PO, TAB 11/01/17 Levetiracetam (Keppra) 500 Mg Tab, 500 MG PO BID, TAB 04/26/15 Calcium W/ Vitamin D (Calcium) 600 Mg Tab, 600 MG PO TID, TAB 04/26/15 Cholecalciferol (VITAMIN D3) 2,000 Unit Tab, 2000 UNIT PO DAILY, TAB 04/26/15 Topiramate (Topiramate) 100 Mg Tab, 100 MG PO BID, TAB 04/26/15 Calcitriol (Calcitriol) 0.25 Mcg Cap, 0.25 MCG PO BID, CAP 04/26/15 Clonazepam (Clonazepam) 1 Mg Tab, 1 MG PO TID, TAB 04/26/15 Aripiprazole (Abilify) 1 Mg/Ml Rosalia, 1 MG PO HS 12/27/13 Paliperidone (Invega) 1.5 Mg Tab, PO, TAB 12/26/13 Lacosamide (Vimpat) 150 Mg Tab, PO BID 03/10/10 Folic Acid (Folic Acid) 1 Mg Tab, DAILY 01/04/10 Topiramate (Topamax) 200 Mg Tab, BID 01/04/10 Current Medications Current Medications Medications (Trade) Dose Ordered Sig/Ebonie Route PRN Reason Start Time Stop Time Status Last Admin Nitroglycerin (Ntrostat Sublingual) 0.4 mg Q5MINP PRN SL FOR CHEST PAIN 01/10/25 23:15 Morphine Sulfate 2 mg Q30M PRN IV FOR CHEST PAIN 01/10/25 23:15 Levetiracetam 100 ml @ 400 mls/hr BID IV 01/11/25 10:00 01/11/25 09:54 Lactated Ringer's 1,000 ml @ 100 mls/hr Q10H IV 01/11/25 10:00 01/11/25 10:00 Lorazepam (Ativan Inj) 1 mg Q2HP PRN IV SEIZURES 01/11/25 13:45 Review of Systems Constitutional: No: Fever, Chills, Sweats, Weakness, Malaise, Other Eyes: No: Pain, Vision change, Conjunctivae inflammation, Eyelid inflammation, Other, Redness ENT: No: Ear pain, Ear discharge, Nose pain, Nose discharge, Nose congestion, Mouth pain, Mouth swelling, Throat pain, Throat swelling, Other Respiratory: No: Cough, Dry, Shortness of breath, SOB with exertion, Wheezing, Hemoptysis, Pleuritic Pain, Sputum, Wheezing, Other Cardiovascular: ; No: Chest Pain Palpitations, Orthopnea, Paroxysmal Noc. Dyspnea, Edema, Lt Headedness, Other Gastrointestinal: No: Nausea, Vomiting, Abdominal Pain, Diarrhea, Constipation, Melena, Hematochezia, Other Genitourinary: No Dysuria, No Frequency, No Incontinence, No Hematuria, No Retention, No Other Musculoskeletal: neck pain; No: other, shoulder pain, arm pain, back pain, hand pain, leg pain, foot pain Skin: No: Rash, Lesions, Jaundice, Bruising, Other Neurological: Other (denies Dizziness, headache.); No: Weakness, Numbness, Incoordination, Change in speech, Confusion, positive: Seizures Vital Signs Vital Signs Date Time Temp Pulse Resp B/P (MAP) Pulse Ox O2 Delivery O2 Flow Rate FiO2 01/11/25 12:00 53 01/11/25 10:59 16 113/72 (86) 96 01/10/25 21:21 Room Air* 0 21 01/10/25 20:00 97.7 97.7 Physical Exam GENERAL: Alert and oriented x 3. No acute distress. EYES: PERRL, EOMI. Anicteric. HENT: Moist mucous membranes. LUNGS: Clear to auscultation bilaterally. CARDIOVASCULAR: Regular rate and rhythm. ABDOMEN: Soft, nontender and nondistended. EXTREMITIES: No edema. NEUROLOGIC: No focal neurological deficits. SKIN: Warm, dry. Labs/Diagnostic Data Labs Test 01/11/25 09:56 01/11/25 08:54 Range/Units Erythrocyte Sedimentation Rate 17 0-20 mm/hr Troponin I High Sensitivity 5 </=54 ng/L White Blood Count 5.0 4.4-10.8 10^3/uL Red Blood Count 3.70 L 4.5-5.90 10^6/uL Hemoglobin 12.0 L 13.5-17.5 g/dL Hematocrit 34.5 L 41.0-53.0 % Mean Corpuscular Volume 93.3 80.0-100.0 fL Mean Corpuscular Hemoglobin 32.5 H 28.0-32.0 pg Mean Corpuscular Hemoglobin Concent 34.9 32.0-36.0 g/dL Red Cell Distribution Width 13.2 11.8-14.3 % Platelet Count 181 140-450 10^3/uL Mean Platelet Volume 6.9 6.9-10.8 fL Neutrophils (%) (Auto) 51.3 37.0-80.0 % Lymphocytes (%) (Auto) 32.6 10.0-50.0 % Monocytes (%) (Auto) 12.7 H 0.0-12.0 % Eosinophils (%) (Auto) 2.9 0.0-7.0 % Basophils (%) (Auto) 0.5 0.0-2.0 % Neutrophils # (Auto) 2.6 1.6-8.6 10 ^3/uL Lymphocytes # (Auto) 1.6 0.4-5.4 10 ^3/uL Monocytes # (Auto) 0.6 0-1.3 10 ^3/uL Eosinophils # (Auto) 0.1 0-0.8 10 ^3/uL Basophils # (Auto) 0 0-0.2 10 ^3/uL Nucleated Red Blood Cells 0.1 % Prothrombin Time 11.4 9.3-11.8 sec Prothrombin Time INR 1.08 0.9-1.15 Sodium Level 147 #H 136-145 mmol/L Potassium Level 4.3 3.5-5.1 mmol/L Chloride Level 113 #H 98-107 mmol/L Carbon Dioxide Level 25 20-31 mmol/L Anion Gap 9 5-15 Blood Urea Nitrogen 18 9-23 mg/dL Creatinine 1.87 H 0.700-1.30 mg/dL Glomerular Filtration Rate Calc 45 >90 mL/min BUN/Creatinine Ratio 9.6 L 10.0-20.0 Serum Glucose 75 74-106 mg/dL Hemoglobin A1c 4.9 <5.7 % A1C Lactic Acid Level 0.8 0.4-2.0 mmol/L Calcium Level 10.5 H 8.7-10.4 mg/dL Magnesium Level 2.2 1.6-2.6 mg/dL Total Bilirubin 0.3 0.2-1.0 mg/dL Aspartate Amino Transferase (AST) 12 <34 U/L Alanine Aminotransferase (ALT) < 9 7-40 U/L Alkaline Phosphatase 67 46-116 U/L Creatine Kinase 97 46-171 U/L C-Reactive Protein High Sensitivity 1.23 H <1.0 mg/dL B-Type Natriuretic Peptide 64.93 0-100 pg/mL Total Protein 7.4 5.7-8.2 g/dL Albumin 4.4 3.2-4.8 g/dL Triglycerides Level 103 < 150 mg/dL Cholesterol Level 144 < 200 mg/dL LDL Cholesterol 84 < 100 mg/dL HDL Cholesterol 44 40-59 mg/dL Thyroid Stimulating Hormone (TSH) 3.23 0.55-4.78 uIU/mL Plasma/Serum Blood Alcohol < 3.0 <10 mg/dL Assessment Sinus bradycardia. Breakthrough seizures. History of HTN. RUBI on CKD. Psych disorder. Plan/Recommendation I agree with your ongoing assessment and care of plan. Patient has been seen by Tyler Padilla NP on my behalf, him and I discussed the plan with the patient. Given no significant findings on echo, continue telemetry monitoring. No episodes of AV blocks, pauses, or irregular rhythms noted on review. Avoid AV pieter blockers. Positive chronotropic response with activity. Does not seem to be symptomatic. Trend troponin. BP marginal, stable off meds. Morphine for pain management. Nitro SL. Additional plan as per the hospital course. Plan discussed with: Patient NYHA Physical activity limitations: NA Date of Service: Jan 11, 2025 Billing Provider: REINIER VEE MD Cardiology Common Codes: [id number] INP/OBS CARE (High) Cardiology Consultation Codes: [id number] CONSULT <45MIN REINIER VEE MD Jan 11, 2025 13:55
[2025-01-11 16:00] VITALS: PULSE 52; RESP 23; O2SAT 97
--- NOTE | 2025-01-11 16:09 | DVHPN2 ---
Subjective I am assuming the care of the patient from today onwards. Patient was hit a parked breakthrough seizures to be also found to have sinus bradycardia and influenza B. Changes from previous H/P or p: No Changes Eyes: No Pain, No Vision change, No Conjunctivae inflammation, No Eyelid inflammation, No Other, No Redness ENT: No Ear pain, No Ear discharge, No Nose pain, No Nose discharge, No Nose congestion, No Mouth pain, No Mouth swelling, No Throat pain, No Throat swelling, No Other Cardiovascular: No Chest Pain, No Palpitations, No Orthopnea, No Paroxysmal Noc. Dyspnea, No Edema, No Lt Headedness, No Other Respiratory: No Cough, No Dry, No Shortness of breath, No SOB with excertion, No Wheezing, No Hemoptysis, No Pleuritic Pain, No Sputum, No Other Gastrointestinal: No Nausea, No Vomiting, No Abdominal Pain, No Diarrhea, No Constipation, No Melena, No Hematochezia, No Other Genitourinary: No Dysuria, No Frequency, No Incontinence, No Hematuria, No Retention, No Other Musculoskeletal: No other, No neck pain, No shoulder pain, No arm pain, No back pain, No hand pain, No leg pain, No foot pain Skin: Rash; No Lesions, No Jaundice, No Bruising, No Other Objective Vitals Vital Signs Date Time Temp Pulse Resp B/P (MAP) Pulse Ox O2 Delivery O2 Flow Rate FiO2 01/11/25 13:56 97.8 73 20 103/58 (73) 98 97.8 01/11/25 13:56 Room Air 01/10/25 21:21 0 21 Intake/Output Intake and Output 01/11/25 06:59 Intake Total 1100 ml Balance 1100 ml Intake IV Total 1100 ml Exam HEENT pupils are reactive Neck is supple CVS S1-S2 regular rate and rhythm Respiratory bilateral equal breath sounds GI positive bowel sounds Extremities no edema [employer] no motor deficit. Medications Current Medications Medications Dose Ordered Sig/Ebonie Route Start Time Stop Time Status Last Admin Dose Admin Nitroglycerin 0.4 mg Q5MINP PRN SL 01/10/25 23:15 Morphine Sulfate 2 mg Q30M PRN IV 01/10/25 23:15 Levetiracetam 100 ml @ 400 mls/hr BID IV 01/11/25 10:00 01/11/25 09:54 400 MLS/HR Lactated Ringer's 1,000 ml @ 100 mls/hr Q10H IV 01/11/25 10:00 01/11/25 10:00 100 MLS/HR Lorazepam 1 mg Q2HP PRN IV 01/11/25 13:45 Laboratory Results Laboratory Tests 01/11/25 08:54 Chemistry Test 01/11/25 08:54 Albumin 4.4 g/dL (3.2-4.8) Calcium Level 10.5 mg/dL (8.7-10.4) H Magnesium Level 2.2 mg/dL (1.6-2.6) Total Protein 7.4 g/dL (5.7-8.2) Coagulation Test 01/11/25 08:54 Prothrombin Time 11.4 sec (9.3-11.8) Prothrombin Time INR 1.08 (0.9-1.15) Lipid panel Test 01/11/25 08:54 Cholesterol Level 144 mg/dL (< 200) HDL Cholesterol 44 mg/dL (40-59) Triglycerides Level 103 mg/dL (< 150) Cardiac Markers Test 01/11/25 08:54 B-Type Natriuretic Peptide 64.93 pg/mL (0-100) LFT Test 01/11/25 08:54 Alanine Aminotransferase (ALT) < 9 U/L (7-40) Alkaline Phosphatase 67 U/L (46-116) Aspartate Amino Transferase (AST) 12 U/L (<34) Total Bilirubin 0.3 mg/dL (0.2-1.0) HgA1c, TSH Test 01/11/25 08:54 Hemoglobin A1c 4.9 % A1C (<5.7) Thyroid Stimulating Hormone (TSH) 3.23 uIU/mL (0.55-4.78) Assessment/Plan Assessment/Plan 44-year-old male with a known history of schizophrenia, seizure disorder, presented to the has been breakthrough seizures found to have 1. Breakthrough seizure 2. Epilepsy next 3. Schizophrenia 4. Influenza B 5. Sinus bradycardia -resume seizure medications,-neurology consultation 2D echo cardiology consult Plan discussed with: Patient, Other My Orders Orders - ZACKARY HARVEY MD Procedure Category Date Status Time Lorazepam 2mg/Ml Inj PHA 01/11/25 In Process (Ativan Inj) 13:45 (Nf) Donepezil PHA 01/12/25 Logged Hydrochloride 10:00 (Nf) Lacosamide PHA 01/11/25 Logged (Vimpat) 22:[address] Tablet PHA 01/11/25 Verified (Depakote "Dr" Tabl 22:00 Oseltamivir 75mg PHA 01/11/25 Verified Capsule (Tamiflu 75mg 22:00 Date of Service: Jan 11, 2025 Billing Provider: ZACKARY HARVEY MD Common Visit Codes: [id number] INP/OBS CARE(MOD) ZACKARY HARVEY MD Jan 11, 2025 16:09
[2025-01-11 20:07] VITALS: PULSE 72; RESP 18; O2SAT 98
[2025-01-11] MEDS: DONEPEZIL HYDROCHLORIDE 5 MG TAB PO SCH (21:11)
[2025-01-11] MEDS: OSELTAMIVIR 75 MG CAP PO SCH (21:11)
[2025-01-11] MEDS ORDERED: LACOSAMIDE 100 MG PO SCH (22:00)
[2025-01-12] VITALS (9 sets, daily range): BP systolic 116–143; BP diastolic 67–87; PULSE 56–78; RESP 16–18; TEMP 97.1–98.3; O2SAT 97–100
--- NOTE | 2025-01-12 01:37 | DVHSR ---
APPROVED REPORT EXAM: Two-dimensional and M-mode echocardiogram with Doppler and color Doppler. Blood Pressure: 105/56 mmHg INDICATION Structural heart disease RISK FACTORS Height: 5' 8", Weight: 210 DIMENSIONS LVDd5.2 (3.8-5.7cm)LA (2D)3.9 (1.9-4.0cm)Aortic Root3.7 (2.0-3.7cm) LVDs3.7 (2.5-4.0cm)LA (MM) (1.9-4.0cm)Aortic Cusp Exc1.6 (1.5-2.0cm) EF (%) 55.0 (55-70%)Rt. Atrium3.7 (1.9-4.0cm)Asc. Aorta cm IVSd0.9 (0.7-1.1cm)RV (D) (1.8-2.4cm) PWd1.0 (0.7-1.1cm) Mitral Valve MitralMitral Stenosis E wave0.60m/sMV Mean GR.mmHg A wave0.40m/sMV Peak GR.mmHg E/A ratio1.52D MVAcm2 Aortic Valve Aortic ValveAortic Stenosis V10.70m/Deshaun Mean GR.2mmHg V20.90m/Deshaun Peak GR.4mmHg LVOT Diameter2.7 (1.8-2.4cm)Doppler AVA4.45cm2 Other Information Quality : Technically LimitedRhythm : Technically limited study due to body habitus. Conclusion NORMAL LV EF AND IS 65% NORMAL VALVES NO EFFUSION NORMAL RV FUNCTION DYSKINESIS OF IVS
--- NOTE | 2025-01-12 12:07 | DVHPN2 ---
Consult Progress Note Subjective Patient reports: No new complaints Objective vital signs Vital Sign Date Time Temp Pulse Resp B/P (MAP) Pulse Ox O2 Delivery O2 Flow Rate FiO2 01/12/25 08:49 97.2 63 17 124/67 (86) 100 97.2 01/12/25 00:10 Room Air* 0 21 Total Intake and Output 01/11/25 01/11/25 01/12/25 15:00 23:00 07:00 Intake Total 472 ml Balance 472 ml medications Current Medications Medications Dose Ordered Sig/Ebonie Route Start Time Stop Time Status Last Admin Dose Admin Nitroglycerin 0.4 mg Q5MINP PRN SL 01/10/25 23:15 Morphine Sulfate 2 mg Q30M PRN IV 01/10/25 23:15 Levetiracetam 100 ml @ 400 mls/hr BID IV 01/11/25 10:00 01/12/25 10:21 400 MLS/HR Lactated Ringer's 1,000 ml @ 100 mls/hr Q10H IV 01/11/25 10:00 01/12/25 05:56 100 MLS/HR Lorazepam 1 mg Q2HP PRN IV 01/11/25 13:45 Donepezil HCl 10 mg HS PO 01/11/25 22:00 01/11/25 21:11 10 MG Oseltamivir Phosphate 75 mg Q12HR PO 01/11/25 22:00 01/16/25 21:59 01/12/25 10:21 75 MG laboratory and microbiology Laboratory Tests 01/11/25 08:54 Test 01/11/25 08:54 Range/Units Serum Glucose 75 74-106 mg/dL Problem List/Assessment/Plan Problem List/Assessment/Plan Sinus Bradycardia - continue telemetry monitoring. No episodes of AV blocks, pauses, or irregular rhythms noted on review. TSH normal. Follow up echo. Avoid AV pieter blockers. Positive chronotropic response with activity. Does not seem to be symptomatic. Unremarkable carotid ultrasound. Continue outpatient monitoring. * Breakthrough Seizure - management per primary team. Neurology on board. CT head showing region of decreased attenuation of the left parietal lobe unchanged from previous CT. * HX HTN - BP marginal, stable off meds. Continue trending. Avoid AV pieter blockers. * RUBI n CKD - continue monitoring with IV fluid hydration. * Psych disorder Case Discussed with Dr Hackett. Normal EF on echo no significant valvular structural abnormalities. No further Cardiology intervention indicated at this time. Recommend Continued outpatient monitoring. We will sign off. This medical document was created using an electronic medical record system with voice recognition software and computerized dictation system. Although this document has been carefully reviewed, there might still be some phonetic and typographical errors. Occasional wrong-word or ``sound-alike substitutions may have occurred due to the inherent limitations of voice recognition software. These areas are purely typographical due to imperfections of the software programs and do not reflect any compromise in the patient's medical care. Please read the chart carefully and recognize, using context, where these substitutions have occurred. Thank you for allowing me to participate in the management of this patient. The treatment plan was discussed with and agreed upon by patient/family including requesting consultants and ordering of imaging/procedures. Plan discussed with: Patient Date of Service: Jan 12, 2025 Billing Provider: JORDEN NINO Common Visit Codes: [id number] INP/OBS CARE(HIGH) JORDEN NINO Jan 12, 2025 12:07
--- NOTE | 2025-01-12 15:29 | DVHPN2 ---
Subjective Patient is requesting for regular food. Patient was hit a parked breakthrough seizures to be also found to have sinus bradycardia and influenza B. Changes from previous H/P or p: No Changes Eyes: No Pain, No Vision change, No Conjunctivae inflammation, No Eyelid inflammation, No Other, No Redness ENT: No Ear pain, No Ear discharge, No Nose pain, No Nose discharge, No Nose congestion, No Mouth pain, No Mouth swelling, No Throat pain, No Throat swelling, No Other Cardiovascular: No Chest Pain, No Palpitations, No Orthopnea, No Paroxysmal Noc. Dyspnea, No Edema, No Lt Headedness, No Other Respiratory: No Cough, No Dry, No Shortness of breath, No SOB with excertion, No Wheezing, No Hemoptysis, No Pleuritic Pain, No Sputum, No Other Gastrointestinal: No Nausea, No Vomiting, No Abdominal Pain, No Diarrhea, No Constipation, No Melena, No Hematochezia, No Other Genitourinary: No Dysuria, No Frequency, No Incontinence, No Hematuria, No Retention, No Other Musculoskeletal: No other, No neck pain, No shoulder pain, No arm pain, No back pain, No hand pain, No leg pain, No foot pain Skin: Rash; No Lesions, No Jaundice, No Bruising, No Other Objective Vitals Vital Signs Date Time Temp Pulse Resp B/P (MAP) Pulse Ox O2 Delivery O2 Flow Rate FiO2 01/12/25 13:00 97.1 56 16 133/83 (100) 99 97.1 01/12/25 08:00 Room Air* 0 21 Intake/Output Intake and Output 01/12/25 07:00 Intake Total 472 ml Balance 472 ml Intake Oral 472 ml # Voids 2 Exam HEENT pupils are reactive Neck is supple CVS S1-S2 regular rate and rhythm Respiratory bilateral equal breath sounds GI positive bowel sounds Extremities no edema [employer]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 Medications Current Medications Medications Dose Ordered Sig/Ebonie Route Start Time Stop Time Status Last Admin Dose Admin Nitroglycerin 0.4 mg Q5MINP PRN SL 01/10/25 23:15 Morphine Sulfate 2 mg Q30M PRN IV 01/10/25 23:15 Levetiracetam 100 ml @ 400 mls/hr BID IV 01/11/25 10:00 01/12/25 10:21 400 MLS/HR Lactated Ringer's 1,000 ml @ 100 mls/hr Q10H IV 01/11/25 10:00 01/12/25 05:56 100 MLS/HR Lorazepam 1 mg Q2HP PRN IV 01/11/25 13:45 Donepezil HCl 10 mg HS PO 01/11/25 22:00 01/11/25 21:11 10 MG Oseltamivir Phosphate 75 mg Q12HR PO 01/11/25 22:00 01/16/25 21:59 01/12/25 10:21 75 MG Laboratory Results Laboratory Tests 01/11/25 08:54 Microbiology Microbiology Date/Time Source Procedure Growth Status 01/12/25 01:18 Nose MRSA Screen - Final Complete Assessment/Plan Assessment/Plan 44-year-old male with a known history of schizophrenia, seizure disorder, presented to the has been breakthrough seizures found to have 1. Breakthrough seizure 2. Epilepsy next 3. Schizophrenia 4. Influenza B 5. Sinus bradycardia -resume seizure medications,-neurology consultation 2D echo cardiology consult -Tamiflu, respiratory isolation Plan discussed with: Patient My Orders Orders - ZACKARY HARVEY MD Procedure Category Date Status Time Oseltamivir 75mg PHA 01/11/25 In Process Capsule (Tamiflu 75mg 22:00 Donepezil Tablet PHA 01/11/25 In Process (Aricept Tablet) 22:00 Regular Diet DIET 01/12/25 Transmitted Lunch Date of Service: Jan 12, 2025 Billing Provider: ZACKARY HARVEY MD Common Visit Codes: [id number] INP/OBS CARE(MOD) ZACKARY HARVEY MD Jan 12, 2025 15:29
--- NOTE | 2025-01-12 23:11 | DVHPN2 ---
Consult Progress Note Subjective Patient reports: No new complaints Other Systems: Patient was seen and evaluated in follow up. Normal EF on echo no significant valvular structural abnormalities. Influenza B is positive, patient statred on Tamiflu. TSH normal. Unremarkable carotid ultrasound. Telemetry reviewed. Objective vital signs Vital Sign Date Time Temp Pulse Resp B/P (MAP) Pulse Ox O2 Delivery O2 Flow Rate FiO2 01/12/25 17:00 97.6 63 18 143/82 (102) 99 97.6 01/12/25 08:00 Room Air* 0 21 Total Intake and Output 01/11/25 01/11/25 01/12/25 15:00 23:00 07:00 Intake Total 472 ml Balance 472 ml medications Current Medications Medications Dose Ordered Sig/Ebonie Route Start Time Stop Time Status Last Admin Dose Admin Nitroglycerin 0.4 mg Q5MINP PRN SL 01/10/25 23:15 Morphine Sulfate 2 mg Q30M PRN IV 01/10/25 23:15 Levetiracetam 100 ml @ 400 mls/hr BID IV 01/11/25 10:00 01/12/25 10:21 400 MLS/HR Lactated Ringer's 1,000 ml @ 100 mls/hr Q10H IV 01/11/25 10:00 01/12/25 05:56 100 MLS/HR Lorazepam 1 mg Q2HP PRN IV 01/11/25 13:45 Donepezil HCl 10 mg HS PO 01/11/25 22:00 01/11/25 21:11 10 MG Oseltamivir Phosphate 75 mg Q12HR PO 01/11/25 22:00 01/16/25 21:59 01/12/25 10:21 75 MG Examination: GENERAL:Normal, NECK:Normal, LUNGS:Normal, CVS:Normal, ABDOMEN:Normal, MSK:Normal, SKIN:Normal laboratory and microbiology Laboratory Tests 01/11/25 08:54 Test 01/11/25 08:54 Range/Units Serum Glucose 75 74-106 mg/dL Problem List/Assessment/Plan Problem List/Assessment/Plan Assessment Sinus bradycardia. Breakthrough seizures. History of HTN. RUBI on CKD. Psych disorder. Plan/Recommendation Continued all current supportive medical care. Patient has been seen by Tyler Padilla NP on my behalf, him and I discussed the plan with the patient. Continue telemetry monitoring. No episodes of AV blocks, pauses, or irregular rhythms noted on review. Avoid AV pieter blockers. Positive chronotropic response with activity. Does not seem to be symptomatic. Morphine for pain management. Nitro SL. Additional plan as per the hospital course. Plan discussed with: Patient Dietary Evaluation Review Recommendations by RD: Dietary education by RD Comments: 1) Add cardiac restriction to diet 2) Encourage optimal PO intake 3) Refer to outpatient RD for weight management 4) Follow-up with cardiology, neurology, and nephrology 5) Continue to monitor I&O, labs, and skin integrity Expected Outcomes/Goals: 1) appetite and labs to improve 2) f/u in 3-5 days Date of Service: Jan 12, 2025 Billing Provider: REINIER VEE MD Cardiology Common Codes: [id number] INP/OBS CARE (High) REINIER VEE MD Jan 12, 2025 17:31
[2025-01-13] VITALS (8 sets, daily range): BP systolic 111–141; BP diastolic 68–87; PULSE 48–64; RESP 16–97; TEMP 97.4–98.4; O2SAT 17–100
--- NOTE | 2025-01-13 15:02 | DVHDS2 ---
Discharge Summary Date of Admission Jan 10, 2025 at 23:07 Date of Discharge: Jan 13, 2025 Labs/Diagnostic Data: Laboratory Results Test 01/11/25 14:02 01/11/25 09:56 01/11/25 08:54 Influenza Type A Antigen Negative (Negative) Influenza Type B Antigen Positive (Negative) SARS-CoV-2 Antigen (Rapid) Negative (NEGATIVE) Erythrocyte Sedimentation Rate 17 mm/hr (0-20) Troponin I High Sensitivity 5 ng/L (</=54) White Blood Count 5.0 10^3/uL (4.4-10.8) Red Blood Count 3.70 10^6/uL (4.5-5.90) Hemoglobin 12.0 g/dL (13.5-17.5) Hematocrit 34.5 % (41.0-53.0) Mean Corpuscular Volume 93.3 fL (80.0-100.0) Mean Corpuscular Hemoglobin 32.5 pg (28.0-32.0) Mean Corpuscular Hemoglobin Concent 34.9 g/dL (32.0-36.0) Red Cell Distribution Width 13.2 % (11.8-14.3) Platelet Count 181 10^3/uL (140-450) Mean Platelet Volume 6.9 fL (6.9-10.8) Neutrophils (%) (Auto) 51.3 % (37.0-80.0) Lymphocytes (%) (Auto) 32.6 % (10.0-50.0) Monocytes (%) (Auto) 12.7 % (0.0-12.0) Eosinophils (%) (Auto) 2.9 % (0.0-7.0) Basophils (%) (Auto) 0.5 % (0.0-2.0) Neutrophils # (Auto) 2.6 10 ^3/uL (1.6-8.6) Lymphocytes # (Auto) 1.6 10 ^3/uL (0.4-5.4) Monocytes # (Auto) 0.6 10 ^3/uL (0-1.3) Eosinophils # (Auto) 0.1 10 ^3/uL (0-0.8) Basophils # (Auto) 0 10 ^3/uL (0-0.2) Nucleated Red Blood Cells 0.1 % Prothrombin Time 11.4 sec (9.3-11.8) Prothrombin Time INR 1.08 (0.9-1.15) Sodium Level 147 mmol/L (136-145) Potassium Level 4.3 mmol/L (3.5-5.1) Chloride Level 113 mmol/L (98-107) Carbon Dioxide Level 25 mmol/L (20-31) Anion Gap 9 (5-15) Blood Urea Nitrogen 18 mg/dL (9-23) Creatinine 1.87 mg/dL (0.700-1.30) Glomerular Filtration Rate Calc 45 mL/min (>90) BUN/Creatinine Ratio 9.6 (10.0-20.0) Serum Glucose 75 mg/dL (74-106) Hemoglobin A1c 4.9 % A1C (<5.7) Lactic Acid Level 0.8 mmol/L (0.4-2.0) Calcium Level 10.5 mg/dL (8.7-10.4) Magnesium Level 2.2 mg/dL (1.6-2.6) Total Bilirubin 0.3 mg/dL (0.2-1.0) Aspartate Amino Transferase (AST) 12 U/L (<34) Alanine Aminotransferase (ALT) < 9 U/L (7-40) Alkaline Phosphatase 67 U/L (46-116) Creatine Kinase 97 U/L (46-171) C-Reactive Protein High Sensitivity 1.23 mg/dL (<1.0) B-Type Natriuretic Peptide 64.93 pg/mL (0-100) Total Protein 7.4 g/dL (5.7-8.2) Albumin 4.4 g/dL (3.2-4.8) Triglycerides Level 103 mg/dL (< 150) Cholesterol Level 144 mg/dL (< 200) LDL Cholesterol 84 mg/dL (< 100) HDL Cholesterol 44 mg/dL (40-59) Thyroid Stimulating Hormone (TSH) 3.23 uIU/mL (0.55-4.78) Plasma/Serum Blood Alcohol < 3.0 mg/dL (<10) Other Laboratory Tests 01/11/25 08:54 Brief Hx & Hospital Course: 44-year-old male with a known history of schizophrenia, seizure disorder, presented to the has been breakthrough seizures found to have breakthrough seizure. Patient was eventually resumed on his home medications. Neurology visit with the patient and cleared the patient to be discharged. Patient also has a influenza B positive Tamiflu was given which will be ordered for home as well. Patient was given respiratory isolation. Patient has sinus bradycardia currently stable. Patient is cleared by Cardiology has been Neurology to be discharged. Condition at Discharge: Stable Final Diagnosis/Problems List 44-year-old male with a known history of schizophrenia, seizure disorder, presented to the has been breakthrough seizures found to have 1. Breakthrough seizure 2. Epilepsy next 3. Schizophrenia 4. Influenza B 5. Sinus bradycardia Discharge Disposition: Home SNF Discharge Will this Physician continue t: No Discharge Instruct/Medications Diet: Cardiac 2g Na,low cholest Activity: See Comment Activity comment: No driving while on seizure medications Follow Up/Referral: Please follow up with the PCP in one week Follow up with the your own Neurology in 1-2 weeks Medications: Resume home medications Discharge Statement: "Patient was advised to return to the ER or call 911 if any headaches, dizziness, shortness of breath, chest pain, abdominal pain, bleeding, fevers, or worsening of medical condition. Patient was counseled about treatment plan, medications, possible side effects, patientverbalized understanding. All questions were answered to the best of my ability. This discharge took greater then 30 minutes in planning, reviewing documentation, counseling the patient, and discussing with other team members." ASSESSMENT ASSESSMENT Assessment 44-year-old male with a known history of schizophrenia, seizure disorder, presented to the has been breakthrough seizures found to have 1. Breakthrough seizure 2. Epilepsy next 3. Schizophrenia 4. Influenza B 5. Sinus bradycardia Date of Service: Jan 13, 2025 Billing Provider: ZACKARY HARVEY MD Common Visit Codes: [id number] DISCH DAY >30min ZACKARY HARVEY MD Jan 13, 2025 15:02
--- NOTE | 2025-01-13 21:00 | DVHINCON2 ---
Date of service: Jan 13, [address] Ding Reason for Consultation Seizure disorder, breakthrough seizures History of Present Illness Mr. Ng is a 44 years old left actually left handed gentleman with a history of schizophrenia, congestive heart failure and a seizure disorder, he was admitted with a chief complaint of seizure. At that time, the patient alert and oriented x 3, he recognized me when nine was stemming his room, he is able to maintain good conversation, but is not a very good historian I saw him on 04/24/2015, 04/27/15, 05/11/16, 10/31/2017, 10/28/2023 for seizure On 01/10/2025, he had two grand mal seizure in that he remembers shaking in the arms and legs. 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 But according to Niki, the patient did not have this type seizure, instead he had spells of event where he looked at the distance, mumbling words, not responding or not properly responding to his surroundings, this happened once or twice weekly Previously I was told that the patient had a stroke in 01/2010 after a seizure, causing left-sided weakness. He likely seesa neurologist in the [facility] His home medication, according to external medication history, Keppra 3000 mg daily, Aricept 10 mg daily, Vagal nerve stimulator model,SenTiva [id number],S/N [id number], implanted: 08/15/2022 Plasma alcohol, 01/03/2025: WBC/HB/PLT/MCV, 01/11/2025: 5/12/131/93.3 BUN/CR, 01/11/2025: 18/1.87 GFR, 01/11/2025: 45 Liver function tests, 01/11/2025: Unremarkable TG/HDL/LDL/HDL, 01/11/2025: 103/144/84/44 TSH, 01/11/2025: 3.23 CT head, 04/26/2015: 1. Areas of encephalomalacia and gliosis in the left parietal lobe are stable compared to the old CT of 01/16/2010. 2. Mildly advanced generalized atrophy for the patient's age with no evidence of acute intracranial abnormality or mass effect CT head, 10/28/2023: Unchanged region of decreased attenuation within the left parietal lobe, which could represent edema from an underlying lesion, or encephalomalacia. This is unchanged in appearance and CT dated 03/13/2023. No discrete enhancing lesion is appreciated on CT with IV contrast. Recommend MRI brain with and without contrast to further evaluate if clinically indicated Past Medical History Hypertension, congestive heart failure, stroke, GERD, kidney stone, schizophrenia, seizure Past Surgical History Vagal nerve stimulator, foot surgery Family History: Alcohol abuse G8 MOTHER G8 FATHER Cirrhosis of liver G8 MOTHER FH: hepatitis G8 MOTHER Family history: Diabetes mellitus G8 MOTHER Family history: Hypertension Seizure disorder (situation) Family History Hypertension, diabetes, alcohol problem, seizure disorder, liver cirrhosis Social History He denies history of tobacco smoking, drug or alcohol abuse Allergies: Coded Allergies: NO KNOWN ALLERGIES (Verified , 03/13/23) Home Meds Reported Medications Pseudoephedrine Hcl (Sudogest) 30 Mg Tab, 30 MG PO, TAB 10/27/23 Promethazine-Dm (Promethazine Dm 6.25-15 mg/5Ml) 1 Rosalia Rosalia, 1 ROSALIA PO, ML 10/27/23 Midazolam (Anticonvulsant) (Nayzilam) 5 Mg/0.1 Ml Spr, 5 MG NA, SPRAY 10/27/23 Lorazepam (Lorazepam) 1 Mg Tab, 1 TAB PO TID, #90 TAB 10/27/23 Ibuprofen (Ibuprofen) 600 Mg Tab, 600 MG PO, MG 0 Refills 10/27/23 Furosemide (Furosemide) 20 Mg Tab, 20 MG PO DAILY for 30 Days, MG 10/27/23 Docusate Sodium (Colace) 100 Mg Cap, 250 MG PO, CAP 10/27/23 Acetaminophen (Acetaminophen) 325 Mg Tab, 650 MG PO Q4HP PRN for MILD PAIN for 30 Days, MG 0 Refills 10/27/23 Trazodone Hcl (Trazodone Hcl) 100 Mg Tab, 100 MG PO, MG 10/27/23 Multiple Vitamins W/ Minerals (Thera Vital M) M Tab, 1 OR, TAB 10/27/23 Sodium Bicarbonate (Sodium Bicarbonate) 650 Mg Tab, 650 MG PO, TAB 10/27/23 Polyethylene Glycol 3350 (Polyethylene Glycol 3350) 8.5 Gm Pow, 17 GM PO, POW 10/27/23 Olanzapine (OLANZAPINE) 10 Mg Tab, 10 MG PO, TAB 10/27/23 Levocetirizine Hydrochloride (Levocetirizine Dihydrochl) 5 Mg Tab, 5 MG PO, TAB 10/27/23 Levetiracetam (Keppra) 1,000 Mg Tab, 1 TAB PO BID, #60 TAB 5 Refills 10/27/23 Ketoconazole (Ketoconazole) 2 % Cre, TOP DAILY, #15 GRAMS 10/27/23 Donepezil Hydrochloride (DONEPEZIL HCL) 10 Mg Tab, 10 MG PO DAILY for 30 Days, MG 10/27/23 Divalproex Sodium (Divalproex Sodium) 500 Mg Tab, 1000 MG PO BID for 30 Days, MG 10/27/23 Menthol-Zinc Oxide (Calprotect 0.44-20.6 %) 1 Oin Oin, 1 OIN EX, OIN 10/27/23 Benztropine Mesylate (Benztropine Mesylate) 1 Mg Tab, 1 MG PO DAILY, MG 10/27/23 Lacosamide (Vimpat) 100 Mg Tab, 100 MG PO BID, TAB 11/01/17 Topiramate (Topiramate) 100 Mg Tab, 300 MG PO BID for 30 Days, MG 11/01/17 Naproxen (NAPROSYN TABLET) 500 Mg Tb, 1 TAB PO BID, #60 TAB 1 Refill 11/01/17 Loratadine (CLARITIN TABLET) 10 Mg Tb, 10 MG PO DAILY 11/01/17 Levetiracetam (KEPPRA TABLET) 500 Mg Tb, 750 MG PO BID 11/01/17 Folic Acid (Folic Acid) 1 Mg Tab, 1 MG PO DAILY for 30 Days, MG 11/01/17 Famotidine (Famotidine) 20 Mg Tab, 20 MG PO BID for 30 Days, MG 11/01/17 Clonazepam (Clonazepam) 1 Mg Tab, 1 TAB PO TID, #90 TAB 2 Refills 11/01/17 Calcitriol (Calcitriol) 0.25 Mcg Cap, 1 CAP PO BID, #30 CAP 5 Refills 11/01/17 Eslicarbazepine Acetate (Aptiom) 800 Mg Tab, 800 MG PO Q12HR, TAB 11/01/17 Aripiprazole (Abilify) 20 Mg Tab, 10 MG PO BID, TAB 11/01/17 Aripiprazole (Abilify) 20 Mg Tab, 10 MG PO, TAB 11/01/17 Levetiracetam (Keppra) 500 Mg Tab, 500 MG PO BID, TAB 04/26/15 Calcium W/ Vitamin D (Calcium) 600 Mg Tab, 600 MG PO TID, TAB 04/26/15 Cholecalciferol (VITAMIN D3) 2,000 Unit Tab, 2000 UNIT PO DAILY, TAB 04/26/15 Topiramate (Topiramate) 100 Mg Tab, 100 MG PO BID, TAB 04/26/15 Calcitriol (Calcitriol) 0.25 Mcg Cap, 0.25 MCG PO BID, CAP 04/26/15 Clonazepam (Clonazepam) 1 Mg Tab, 1 MG PO TID, TAB 04/26/15 Aripiprazole (Abilify) 1 Mg/Ml Rosalia, 1 MG PO HS 12/27/13 Paliperidone (Invega) 1.5 Mg Tab, PO, TAB 12/26/13 Lacosamide (Vimpat) 150 Mg Tab, PO BID 03/10/10 Folic Acid (Folic Acid) 1 Mg Tab, DAILY 01/04/10 Topiramate (Topamax) 200 Mg Tab, BID 01/04/10 Review of Systems As above, the other systems are negative Vital Signs Vital Signs Date Time Temp Pulse Resp B/P (MAP) Pulse Ox O2 Delivery O2 Flow Rate FiO2 01/13/25 17:00 97.7 54 18 141/87 (105) 97 97.7 01/13/25 08:00 Room Air* 0 21 Physical Exam GENERAL EXAM: General: the patient is well developed and nourished. No acute distress. HEENT: Normocephalic, neck is supple, no carotid bruits. No mass. RESPIRATORY: Normal respiratory effort with symmetrical lung expansion. Lungs clear to auscultation. CARDIOVASCULAR: Regular rate and rhythm with no murmurs. S1, S2. ABDOMEN: Soft, nontender, normal bowel sound NEUROLOGICAL: MENTAL STATUS: See HPI SPEECH, LANGUAGE, HIGHER CORTICAL FUNCTION: no aphasia or dysathria. CRANIAL NERVES: #2: Intact visual villalta to confrontation. The optic discs were sharp. #3,4,6: Pupils are equal, round and reactive. EOMs conjugated, with left gaze and weakness, subtle nystagmus. #5: Facial sensation intact in all three divisions bilaterally. Mandibular stren gth intact. #7: Facial muscles symmetrical and strength intact. #8: Hearing grossly normal to voice. #9,10: Uvula and soft palate rise in the midline. Swallow and voice are normal. #11: Trapezius and sternomastoid strength intact bilaterally. #12: Tongue midline. No fasciculations or atrophy. SENSATION: Sensation to touch and pinprick is normal. MOTOR: Normal tone in the upper and lower extremity. Normal muscle bulk. No fasciculations. No abnormal movements or posturing. Muscle strength of the major groups in the upper extremities is 5/5. Muscle strength of the major groups in the lower extremities is 5/5. REFLEXES: Deep tendon reflexes symmetrical. No pathological reflexes. CEREBELLAR/COORDINATION: Finger to nose is normal bilaterally. GAIT/STATION: Unremarkable Labs/Diagnostic Data Labs Test 01/11/25 14:02 01/11/25 09:56 01/11/25 08:54 Range/Units Influenza Type A Antigen Negative Negative Influenza Type B Antigen Positive Negative SARS-CoV-2 Antigen (Rapid) Negative NEGATIVE Erythrocyte Sedimentation Rate 17 0-20 mm/hr Troponin I High Sensitivity 5 </=54 ng/L White Blood Count 5.0 4.4-10.8 10^3/uL Red Blood Count 3.70 L 4.5-5.90 10^6/uL Hemoglobin 12.0 L 13.5-17.5 g/dL Hematocrit 34.5 L 41.0-53.0 % Mean Corpuscular Volume 93.3 80.0-100.0 fL Mean Corpuscular Hemoglobin 32.5 H 28.0-32.0 pg Mean Corpuscular Hemoglobin Concent 34.9 32.0-36.0 g/dL Red Cell Distribution Width 13.2 11.8-14.3 % Platelet Count 181 140-450 10^3/uL Mean Platelet Volume 6.9 6.9-10.8 fL Neutrophils (%) (Auto) 51.3 37.0-80.0 % Lymphocytes (%) (Auto) 32.6 10.0-50.0 % Monocytes (%) (Auto) 12.7 H 0.0-12.0 % Eosinophils (%) (Auto) 2.9 0.0-7.0 % Basophils (%) (Auto) 0.5 0.0-2.0 % Neutrophils # (Auto) 2.6 1.6-8.6 10 ^3/uL Lymphocytes # (Auto) 1.6 0.4-5.4 10 ^3/uL Monocytes # (Auto) 0.6 0-1.3 10 ^3/uL Eosinophils # (Auto) 0.1 0-0.8 10 ^3/uL Basophils # (Auto) 0 0-0.2 10 ^3/uL Nucleated Red Blood Cells 0.1 % Prothrombin Time 11.4 9.3-11.8 sec Prothrombin Time INR 1.08 0.9-1.15 Sodium Level 147 #H 136-145 mmol/L Potassium Level 4.3 3.5-5.1 mmol/L Chloride Level 113 #H 98-107 mmol/L Carbon Dioxide Level 25 20-31 mmol/L Anion Gap 9 5-15 Blood Urea Nitrogen 18 9-23 mg/dL Creatinine 1.87 H 0.700-1.30 mg/dL Glomerular Filtration Rate Calc 45 >90 mL/min BUN/Creatinine Ratio 9.6 L 10.0-20.0 Serum Glucose 75 74-106 mg/dL Hemoglobin A1c 4.9 <5.7 % A1C Lactic Acid Level 0.8 0.4-2.0 mmol/L Calcium Level 10.5 H 8.7-10.4 mg/dL Magnesium Level 2.2 1.6-2.6 mg/dL Total Bilirubin 0.3 0.2-1.0 mg/dL Aspartate Amino Transferase (AST) 12 <34 U/L Alanine Aminotransferase (ALT) < 9 7-40 U/L Alkaline Phosphatase 67 46-116 U/L Creatine Kinase 97 46-171 U/L C-Reactive Protein High Sensitivity 1.23 H <1.0 mg/dL B-Type Natriuretic Peptide 64.93 0-100 pg/mL Total Protein 7.4 5.7-8.2 g/dL Albumin 4.4 3.2-4.8 g/dL Triglycerides Level 103 < 150 mg/dL Cholesterol Level 144 < 200 mg/dL LDL Cholesterol 84 < 100 mg/dL HDL Cholesterol 44 40-59 mg/dL Thyroid Stimulating Hormone (TSH) 3.23 0.55-4.78 uIU/mL Plasma/Serum Blood Alcohol < 3.0 <10 mg/dL Microbiology Date/Time Source Procedure Growth Status 01/12/25 01:18 Nose MRSA Screen - Final Complete Assessment Seizure disorder Seizure breakthrough Partial complex seizure Grand mal seizure, he may have mixed epileptic and nonepileptic seizure based on the history he provided on 01/13/2025 Status post vagal nerve stimulator insertion Mental retardation, mild Possible history of hemorrhagic stroke Plan/Recommendation Monitoring Supportive treatment Ativan for seizure breakthrough Keppra 1500 mg twice a day DVT prophylaxis GI prophylaxis Follow-up with his doctors on discharge Okay to discharge from neurology point of view This medical document was created using an electronic medical record system with SVXR dictation system. Although this document has been carefully reviewed, there may still be some phonetic and typographical errors. These areas are purely typographical due to imperfections of the software programs, and do not reflect any compromise in the patient's medical care. Plan discussed with: Other CHAPIN FRAIRE MD Jan 13, 2025 21:00
[2025-01-13] MEDS: levETIRAcetam 500 MG TAB PO SCH (21:58)
[2025-01-13] MEDS: TOPIRAMATE 100 MG TAB PO SCH (21:58)
--- NOTE | 2025-01-13 22:59 | DVHPN2 ---
Progress Note - Dictate Date Seen: Jan 13, 2025 Medical Necessity Reason Pt with a Central, PICC or Fol: No Subjective Patient was seen and evaluated in follow up. No overnight events. Patient c/o generalized pain. MRSA is negative. Telemetry reviewed. vital signs Vital Sign Date Time Temp Pulse Resp B/P (MAP) Pulse Ox O2 Delivery O2 Flow Rate FiO2 01/13/25 21:00 97.6 62 16 138/78 (98) 99 97.6 01/13/25 08:00 Room Air* 0 21 Total Intake and Output 01/12/25 01/12/25 01/13/25 15:00 23:00 07:00 Intake Total 2100 ml 3020 ml Output Total 1400 ml 1505 ml Balance 700 ml 1515 ml medications Current Medications Medications Dose Ordered Sig/Ebonie Route Start Time Stop Time Status Last Admin Dose Admin Nitroglycerin 0.4 mg Q5MINP PRN SL 01/10/25 23:15 Morphine Sulfate 2 mg Q30M PRN IV 01/10/25 23:15 Lactated Ringer's 1,000 ml @ 100 mls/hr Q10H IV 01/11/25 10:00 01/13/25 22:20 100 MLS/HR Lorazepam 1 mg Q2HP PRN IV 01/11/25 13:45 Donepezil HCl 10 mg HS PO 01/11/25 22:00 01/13/25 21:58 10 MG Oseltamivir Phosphate 75 mg Q12HR PO 01/11/25 22:00 01/16/25 21:59 01/13/25 21:58 75 MG Levetiracetam 1,500 mg BID PO 01/13/25 22:00 01/13/25 21:58 1,500 MG Topiramate 100 mg Q12HR PO 01/13/25 22:00 01/13/25 21:58 100 MG objective GENERAL: Alert and oriented x 3. No acute distress. EYES: PERRL, EOMI. Anicteric. HENT: Moist mucous membranes. LUNGS: Clear to auscultation bilaterally. CARDIOVASCULAR: Regular rate and rhythm. ABDOMEN: Soft, nontender and nondistended. EXTREMITIES: No edema. NEUROLOGIC: No focal neurological deficits. SKIN: Warm, dry. laboratory and microbiology Laboratory Tests 01/11/25 08:54 Test 01/11/25 08:54 Range/Units Serum Glucose 75 74-106 mg/dL Problem List Sinus bradycardia. Breakthrough seizures. History of HTN. RUBI on CKD. Psych disorder. Assessment/Plan Continued all current supportive medical care. Morphine for pain management. Nitro SL. Additional plan as per the hospital course. Dietary Evaluation Review Recommendations by RD: Dietary education by RD Comments: 1) Add cardiac restriction to diet 2) Encourage optimal PO intake 3) Refer to outpatient RD for weight management 4) Follow-up with cardiology, neurology, and nephrology 5) Continue to monitor I&O, labs, and skin integrity Expected Outcomes/Goals: 1) appetite and labs to improve 2) f/u in 3-5 days Plan discussed with: Patient REINIER VEE MD Jan 13, 2025 22:59
[2025-01-14 01:00] VITALS: BP 140/79; PULSE 63; RESP 15; TEMP 97.7; O2SAT 98
[2025-01-14 05:00] VITALS: BP 95/74; PULSE 54; RESP 16; TEMP 98.1; O2SAT 98
[2025-01-14 07:37] VITALS: PULSE 64; RESP 99; O2SAT 18
[2025-01-14 07:54] VITALS: BP 105/74; PULSE 64; RESP 18; TEMP 36.7; O2SAT 99
[2025-01-14 08:00] VITALS: PULSE 49
--- NOTE | 2025-01-14 10:23 | DVHPN2 ---
Progress Note - Dictate Date Seen: Jan 14, 2025 Medical Necessity Reason Pt with a Central, PICC or Fol: No Subjective Patient was not seen vital signs Vital Sign Date Time Temp Pulse Resp B/P (MAP) Pulse Ox O2 Delivery O2 Flow Rate FiO2 01/14/25 08:00 49 01/14/25 07:54 98.2 18 99 01/14/25 07:37 Room Air* 0 21 01/14/25 05:00 95/74 (81) Total Intake and Output 01/13/25 01/13/25 01/14/25 15:00 23:00 07:00 Intake Total 1100 ml 870 ml 1800 ml Output Total 1000 ml 1300 ml Balance 1100 ml -130 ml 500 ml medications Current Medications Medications Dose Ordered Sig/Ebonie Route Start Time Stop Time Status Last Admin Dose Admin Nitroglycerin 0.4 mg Q5MINP PRN SL 01/10/25 23:15 Morphine Sulfate 2 mg Q30M PRN IV 01/10/25 23:15 Lactated Ringer's 1,000 ml @ 100 mls/hr Q10H IV 01/11/25 10:00 01/13/25 22:20 100 MLS/HR Lorazepam 1 mg Q2HP PRN IV 01/11/25 13:45 Donepezil HCl 10 mg HS PO 01/11/25 22:00 01/13/25 21:58 10 MG Oseltamivir Phosphate 75 mg Q12HR PO 01/11/25 22:00 01/16/25 21:59 01/14/25 09:37 75 MG Levetiracetam 1,500 mg BID PO 01/13/25 22:00 01/14/25 09:37 1,500 MG Topiramate 100 mg Q12HR PO 01/13/25 22:00 01/14/25 09:37 100 MG laboratory and microbiology Laboratory Tests 01/11/25 08:54 Test 01/11/25 08:54 Range/Units Serum Glucose 75 74-106 mg/dL Assessment/Plan Seizure disorder Seizure breakthrough Partial complex seizure Grand mal seizure, he may have mixed epileptic and nonepileptic seizure based on the history he provided on 01/13/2025 Status post vagal nerve stimulator insertion Mental retardation, mild Possible history of hemorrhagic stroke Dietary Evaluation Review Recommendations by RD: Dietary education by RD Comments: 1) Add cardiac restriction to diet 2) Encourage optimal PO intake 3) Refer to outpatient RD for weight management 4) Follow-up with cardiology, neurology, and nephrology 5) Continue to monitor I&O, labs, and skin integrity Expected Outcomes/Goals: 1) appetite and labs to improve 2) f/u in 3-5 days Plan discussed with: Other CHAPIN FRAIRE MD Jan 14, 2025 10:23
--- NOTE | 2025-01-14 23:56 | DVHPN2 ---
Progress Note - Dictate Date Seen: Jan 14, 2025 Medical Necessity Reason Pt with a Central, PICC or Fol: No Subjective Patient was seen and evaluated in follow up. Patient has no new complaints at this time. Patient denies any cardiac symptoms. Patient is cardiac stable for discharge. Telemetry reviewed. vital signs Vital Sign Date Time Temp Pulse Resp B/P (MAP) Pulse Ox O2 Delivery O2 Flow Rate FiO2 01/14/25 08:00 49 01/14/25 07:54 98.2 18 99 01/14/25 07:37 Room Air* 0 21 01/14/25 05:00 95/74 (81) Total Intake and Output 01/13/25 01/13/25 01/14/25 15:00 23:00 07:00 Intake Total 1100 ml 870 ml 1800 ml Output Total 1000 ml 1300 ml Balance 1100 ml -130 ml 500 ml objective GENERAL: Alert and oriented x 3. No acute distress. EYES: PERRL, EOMI. Anicteric. HENT: Moist mucous membranes. LUNGS: Clear to auscultation bilaterally. CARDIOVASCULAR: Regular rate and rhythm. ABDOMEN: Soft, nontender and nondistended. EXTREMITIES: No edema. NEUROLOGIC: No focal neurological deficits. SKIN: Warm, dry. laboratory and microbiology Laboratory Tests 01/11/25 08:54 Test 01/11/25 08:54 Range/Units Serum Glucose 75 74-106 mg/dL Problem List Sinus bradycardia. Breakthrough seizures. History of HTN. RUBI on CKD. Psych disorder. Assessment/Plan Continued all current supportive medical care. Morphine for pain management. Nitro SL. Additional plan as per the hospital course. Dietary Evaluation Review Recommendations by RD: Dietary education by RD Comments: 1) Add cardiac restriction to diet 2) Encourage optimal PO intake 3) Refer to outpatient RD for weight management 4) Follow-up with cardiology, neurology, and nephrology 5) Continue to monitor I&O, labs, and skin integrity Expected Outcomes/Goals: 1) appetite and labs to improve 2) f/u in 3-5 days Plan discussed with: Patient REINEIR VEE MD Jan 14, 2025 23:56
== END 2025-01-14 09:46 | disposition home or self-care (01) | DRG 53 ==
LOC: EDBD 11:31 → ER 11:31 → OVERFLOW 23:07 → TELE-EAST 01-11 23:53
PROVIDERS: ADMIT Internal Medicine; ATTEND Internal Medicine
DX: G40.409 Other generalized epilepsy and epileptic syndromes, not intractable, without status epilepticus (principal); N17.9 Acute kidney failure, unspecified; I13.0 Hypertensive heart and chronic kidney disease with heart failure and stage 1 through stage 4 chronic kidney disease, or unspecified chronic kidney disease; I50.9 Heart failure, unspecified; F20.9 Schizophrenia, unspecified; G40.209 Localization-related (focal) (partial) symptomatic epilepsy and epileptic syndromes with complex partial seizures, not intractable, without status epilepticus; N18.9 Chronic kidney disease, unspecified; J10.1 Influenza due to other identified influenza virus with other respiratory manifestations; Z20.822 Contact with and (suspected) exposure to COVID-19; R00.1 Bradycardia, unspecified; K21.9 Gastro-esophageal reflux disease without esophagitis; F70 Mild intellectual disabilities; E78.5 Hyperlipidemia, unspecified; Z87.442 Personal history of urinary calculi; Z86.73 Personal history of transient ischemic attack (TIA), and cerebral infarction without residual deficits; Z83.3 Family history of diabetes mellitus; Z82.49 Family history of ischemic heart disease and other diseases of the circulatory system; Z82.0 Family history of epilepsy and other diseases of the nervous system; Z79.899 Other long term (current) drug therapy; Z78.9 Other specified health status
CPT/HCPCS: 36415; 70450; 80048; 80053; 80061; 80320; 82550; 83036; 83605; 83735; 83880; 84443; 84484; 85025; 85610; 85652; 86141; 87081; 87426; 87804; 93005; 93306; 93886; 96365; 97110; 97116; 97163; 97530; 99291; G0378

== ENCOUNTER 2025-04-20 20:30 | Emergency (ER) | payer MEDICAID ==
[~2025-04-20] VITALS: Ht 175.3 cm; Wt 81.8 kg
[~2025-04-20 20:30] MED LIST changes: -DIVA500T13 PO; -IBUP-1454 PO
[2025-04-20] MEDS: levETIRAcetam 1000 mg/100ml 100 ML IV ONE (20:49)
[2025-04-20] MEDS: SODIUM CHLORIDE 0.9% 1,000 ML IV ONE (20:49)
[2025-04-20] MEDS: levETIRAcetam 500 mg/100ml 100 ML IV ONE (21:09)
--- NOTE | 2025-04-20 21:11 | ED.PDOC ---
HPI (NEURO) HPI Comments 44 y/o M, with a history of seizures and developmental delay, is BIBA with c/c of seizure. Per EMS personnel report, patient is stated by his md ophthalmologist on having sudden and unprovoked onset of tonic clonic seizure episode, this evening. Episode was reported to have lasted 10x minutes in duration. Patient is stated to take 1500mg BID Keppra and have missed his morning dose, today. No signs of trauma or incontinence noted on scene. Upon arrival to ED, patient reports on feeling better and expresses to go home, with no endorsement of any further acute symptoms. Chief Complaint: Seizure Time Seen by MD: 20:40 Primary Care Provider: UNKNOWN Reviewed Notes: Nurses Notes, Commercial Collector Notes, Medications, Allergies Information Source: Patient, Emergency Med Personnel Mode of Arrival: EMS Severity: Moderate Timing: Hours Duration: Minutes Prehospital treatment: 12 Lead EKG, Accucheck, Recruiting Manager Past Medical History PAST MEDICAL HISTORY: CKF, CVA, GERD, High Lipids, HTN, Kidney Stones, Schizophrenia, Seizures, Thyroid Past Medical History (Other): Developmental delay Family History Family History: Reviewed,noncontributory to illness, No family hx of HTN Social History Smoker: Non-Smoker Alcohol: Denies ETOH Use Drugs: Denies Drug Use Lives In: Assisted Care All Other Systems: Reviewed and Negative (Comprehensive systems review obtained and negative except for what is stated in the HPI.) Physical Exam General Appearance: Moderate Distress HEENT: Normal ENT Inspection, Pharynx Normal, TMs Normal Neck: Full Range of Motion, Non-Tender, Normal, Normal Inspection Respiratory: Chest Non-Tender, Lungs Clear, No Accessory Muscle Use, No Respiratory Distress, Normal Breath Sounds Cardiovascular: No Edema, No JVD, No Murmur, No Gallop, Normal Peripheral Pulses, Regular Rate/Rhythm Breast Exam: Deferred Gastrointestinal: No Organomegaly, Non Tender, No Pulsatile Mass, Normal Bowel Sounds, Soft Genitalia: Deferred Pelvic: Deferred Rectal: Deferred Extremities: No calf tenderness, Normal capillary refill, Normal inspection, Normal range of motion, Non-tender, No pedal edema Musculoskeletal : Apperance: Normal Neurologic: Alert, airline operations agent II-XII nml as Tested, No Motor Deficits, Normal Affect, Normal Mood, No Sensory Deficits Cerebellar Function: Normal Reflexes: Normal Skin: Dry, Normal Color, Warm Peripheral Pulses: 3+ Radial (R), 3+ Radial (L) Lymphatic: No Adenopathy Was a procedure done? Was a procedure done?: No Differential Diagnosis (SZ) Seizure: Hyperventilation, Psychogenic Seizure, Anticonvulsant Withdrawl, CVA/TIA, Hypocalcemia, Hypoglycemia, Hyponatremia, Hypoxemia, Idiopathic, Encephalopathy, Epilepsy-Status X-Ray, Labs, Meds, VS Vital Signs Date Time Temp Pulse Resp B/P (MAP) Pulse Ox O2 Delivery O2 Flow Rate FiO2 04/20/25 20:48 69 20 98 Room Air 04/20/25 20:48 98.0 69 20 106/72 (83) 97 98.0 04/20/25 20:31 98.4 81 16 111/64 99 98.4 Current Medications Medications (Trade) Dose Ordered Sig/Ebonie Route Start Time Stop Time Status Last Admin Sodium Chloride 1,000 ml @ 1,000 mls/hr Q1H ONCE IV 04/20/25 20:45 04/20/25 21:44 DC 04/20/25 20:49 Levetiracetam 100 ml @ 400 mls/hr ONCE ONCE IV 04/20/25 20:45 04/20/25 20:59 DC 04/20/25 20:49 Patient alert. Had a seizure. Vitals stable. Answering questions. Mentally challenged. Establish intravenous access. Was given fluids. Was given Keppra. Neurological examination is pristine. CT scan of the head was not done because physical examination was pristine. Patient insists on going home. Family is aware. Was told to follow up with his primary care physician. Was told to come back if there is any problem. Time of 1ST Reevaluation: 21:20 Reevaluation 1ST: Improved Patient Education/Counseling: Diagnosis, Treatment Family Education/Counseling: No Family Present Departure 1 Departure Time of Disposition: 22:57 Impression: Primary Impression: Seizure disorder Disposition: 01 HOME / SELF CARE / HOMELESS Condition: Good Discharged With: Self Critical Care Note Critical Care Time?: No Stability Stability form required: No Heart Score Heart Score: Heart Score Response (Comments) Value History N/A 0 EKG N/A 0 Age N/A 0 Risk Factors N/A 0 Troponin N/A 0 Total 0 I personally scribed for CHARLA MCGHEE MD ([email or web address]) on 04/20/25 at 21:11. Electronically submitted by Trey Asher ([email or web address]). CHARLA MCGHEE MD Apr 20, 2025 21:11
[2025-04-21 00:27] VITALS: BP 138/64; PULSE 75; RESP 20; TEMP 98.2; O2SAT 99
== END 2025-04-21 00:28 | disposition home or self-care (01) ==
LOC: ER 20:30 → EDBD 20:30 → ER 04-21 00:28
DX: G40.909 Epilepsy, unspecified, not intractable, without status epilepticus (principal); I10 Essential (primary) hypertension; Z86.73 Personal history of transient ischemic attack (TIA), and cerebral infarction without residual deficits; Z79.899 Other long term (current) drug therapy
CPT/HCPCS: 96365; 99284; J1953